=== PATIENT | male | born 1960 | race Caucasian/White ===

== ENCOUNTER 2016-11-07 09:53 | Day surgery (SDC) | payer BC, OTHER ==
[2016-10-24 16:13] VITALS: BMI 32.0
[~2016-11-07] VITALS: Ht 182.9 cm; Wt 108.2 kg
[~2016-11-07 09:53] MED LIST: AMLO-110 PO; ASPI81TA28 PO; ATOR10TA82 PO; CEFAZOLIN 2000 MG/60 ML D5W IV SCH; DOCU-94 PO; LOSA100T65 PO
--- NOTE | 2016-11-07 10:23 | History and Physical ---
History & Physical Date Nov 07, 2016. Chief Complaint LBP and L anterior thigh pain/numbness History of Present Illness The patient is a 55 year old male with complaints of above that began a few months ago after a fall. He has a hx of L3-S1 PSF following which he did well and returned to work. Prior to that he had undergone 2 other lumbar surgeries. His leg pain is severe and has failed to improve with rest and outpatient management. He is out of work due to pain. there is no pain on right or below his knee. MRI shows a large L L2-3 HNP, it did appear to extend into the neuroforamen. He has no incontinence. Past Medical/Surgical History HTN Hi cholesterol Additional History Hepatic Disease: No Endocrine Disorder: No Kidney Disease: No Hypertension: Yes Heart Disease: No Bleeding Tendencies: No Infectious Diseases: No Allergies Coded Allergies: No Known Allergies (Unverified , 10/24/16) Home Medications Scheduled Amlodipine (Norvasc), 5 MG PO QAM Aspirin (Aspirin Ec), 81 MG PO QAM Atorvastatin (Lipitor), 10 MG PO QAM Docusate Sodium (Colace), 2 CAP PO QPM Losartan Potassium (Cozaar), 100 MG PO QAM Physical Examination Skin: warm/dry, no rash Eyes: normal inspection ENT: normal ENT inspection Head: normocephalic, atraumatic Neck: supple, trachea midline Respiratory/Chest: lungs clear, no respiratory distress Cardiovascular: regular rate, rhythm Back: normal inspection, + pertinent finding (midline scar) Extremities: normal inspection, normal range of motion Neurologic/Psych: no motor/sensory deficits (excpet decreased sensation lt tch L anter thigh), alert, normal reflexes, oriented x 3 Diagnosis Left L2-3 HNP Plan of Treatment Left L2-3 microdiscectomy, if the facet is removed in its entirety intraoperatively to access herniation consent for a possible fusion was discussed.
[2016-11-07 10:27] VITALS: BP 152/73; PULSE 61; TEMP 36.7; O2SAT 98; Ht 182.9 cm; Wt 108.2 kg
[2016-11-07] MEDS ORDERED: THROMBIN 5000 UNITS KIT ONE (10:45)
[2016-11-07] MEDS ORDERED: HEPARIN SOD (PORCINE) 1000 UNIT/ML 10 ML VIAL ONE (10:45)
[2016-11-07] MEDS ORDERED: BACITRACIN 50000 UNIT VIAL ONE (10:46)
[2016-11-07] MEDS ORDERED: BUPIVACAINE/EPINEPHRINE 0.5% MPF 1:200,000 30 ML VIAL ONE (10:48)
[2016-11-07] MEDS ORDERED: LACTATED RINGER'S 1000ML 1,000 ML IV SCH (11:00)
[2016-11-07 11:06] LABS: PARTIAL THROMBOPLASTIN RATIO 1.1
[2016-11-07] MEDS ORDERED: FENTANYL CITRATE INJ 50 MCG/1 ML 2 ML VIAL ONE ×2 (11:06→11:36)
[2016-11-07] MEDS ORDERED: MIDAZOLAM HCL 1 MG/ML 2ML VIAL ONE (11:06)
[2016-11-07] MEDS ORDERED: HYDROmorphone INJ 2 MG/ML SYR/VIAL ONE ×2 (11:36→12:07)
[2016-11-07] MEDS ORDERED: ONDANSETRON INJ 2 MG/ML 2 ML VIAL ONE (11:44)
[2016-11-07] MEDS ORDERED: DEXAMETHASONE SOD INJ 4 MG/ML VIAL ONE (11:44)
[2016-11-07] MEDS ORDERED: LIDOCAINE HCL 2% 2 ML VIAL (20MG/ML) ONE (11:44)
[2016-11-07] MEDS ORDERED: PROPOFOL IV EMULSION 10 MG/ML 20 ML VIAL IV ONE (11:44)
[2016-11-07] MEDS ORDERED: FENTANYL CITRATE INJ 50 MCG/1 ML 2 ML VIAL IV PRN (11:45)
[2016-11-07] MEDS ORDERED: PROMETHAZINE HCL INJ 6.25 MG in SODIUM CHLORIDE 0.9% 50ML 50 ML IV PRN (11:45)
[2016-11-07] MEDS ORDERED: ONDANSETRON INJ 2 MG/ML 2 ML VIAL IV PRN ×2 (11:45→12:00)
[2016-11-07] MEDS ORDERED: ATROPINE SULFATE 0.1 MG/ML 5ML SYR IV PRN (11:45)
[2016-11-07] MEDS ORDERED: EpHEDrine SULFATE INJ 50 MG/ML AMP IV PRN (11:45)
[2016-11-07] MEDS ORDERED: FLOSEAL HEMOSTATIC MATRIX 5ML TOP ONE (11:54)
[2016-11-07] MEDS ORDERED: SODIUM CHLORIDE 0.9% 1000ML 1,000 ML IV SCH (11:59)
--- NOTE | 2016-11-07 11:59 | [facility] Post Operative Brief Note ---
Immediate Operative Summary Operative Date Nov 07, 2016. Pre-Operative Diagnosis Left L2-L3 Herniated nucleus pulposus Post-Operative Diagnosis same as preop Procedure(s) Performed Left L2-L3 Microdiscectomy Surgeon Dr. Tavon Lange Credit Risk Manager Surgeon(s) Manny Neal PA-C Estimated Blood Loss 80ml Findings dict Specimens none
[2016-11-07] MEDS ORDERED: MoRPHine SULFATE 2 MG/ML CARP IV PRN (12:00)
[2016-11-07] MEDS ORDERED: OXYC-57 PO (12:00)
[2016-11-07] MEDS ORDERED: OXYCODONE/ACETAMINOPHEN 5-325 TAB PO PRN ×2 (12:00)
--- NOTE | 2016-11-07 12:01 | Discharge Instructions ---
Discharge Instructions Date of Service Nov 07, 2016. Admission Reason for Admission: Lumbar Spinal Stenosis Discharge Discharge Diagnosis / Problem: same Discharge Goals Goal(s): Decrease discomfort Activity Recommendations Activity Limitations: per Instructions/Follow-up section . Instructions / Follow-Up Instructions / Follow-Up ACTIVITY RECOMMENDATIONS: SELF CARE INSTRUCTIONS AFTER A LAMINECTOMY 1. No prolonged sitting (less than 30 minutes for the first 3 weeks after surgery). 2. No bending, lifting more than 5 pounds, or twisting (roll like a log when turning in bed). 3. You may shower 3 days after surgery if no drainage from wound. Thoroughly dry wound. Do not soak in the tub. 4. Please walk as much as you can for exercise. Gradually increase the distance that you walk as your endurance increases. 5. You may drive in 7-10 days if you are comfortable and no longer requiring pain medications. SPECIAL CARE INSTRUCTIONS: VERY IMPORTANT TO READ AND REVIEW A. Your surgical incision has been closed with a cosmetic suture under the skin that will dissolve in about 6 weeks. In 14 days, you can use a pair of clean scissors and cut the suture that is left outside of the skin at the ends of your incision. B. Complications are uncommon, but please contact us if you have any signs or symptoms of: 1. wound infection (fever higher than 102.5 degrees F, redness, separation of wound, drainage, or increasing pain from the incision) 2. blood clots in legs (pain, swelling, redness and warmth in legs) 3. urinary tract infection (fever higher than 102.5 degrees, burning upon urination or increased frequency of urination) 4. nerve problems (inability to walk on your toes or heels, numbness, loss of bowel or bladder control) 5. any other symptoms that concern you. C. Please call the office at if you have any concerns or questions about your operation or recovery. MANAGING PAIN AFTER SPINAL SURGERY 1. Narcotic medication is intended for short-term use and will be provided for surgical pain. Surgical pain usually lasts for a period of 4-6 weeks. Narcotic medication includes Percocet, Vicodin, Darvocet, Tylenol #3 or Lortab. 2. Longer-term pain is more appropriately treated with non-narcotic medication such as Tylenol ES. 3. Muscle spasm is not appropriately treated with narcotics. Muscle relaxers such as Soma, Flexeril or Skelaxin can be used along with Tylenol ES. 4. Remember that we all live with some "aches and pains". This is not unusual or uncommon after an injury or as we get older. 5. We will provide appropriate medication within the normal guidelines of their prescribed use. We will also be very cautious and aware of potential abuse and extended duration of patients' medication needs. 6. Please allow 2-3 days to process refills. Prescriptions will not be mailed but must be picked up at the office. FOLLOW UP VISIT: Keep your scheduled follow-up appointment. Any questions, please call the office at . Current Hospital Diet Patient's current hospital diet: Discharge Diet Recommended Diet: Regular Diet Procedures Procedures Performed: Left L2-L3 Microdiscectomy Pending Studies Studies pending at discharge: no Medical Emergencies . Who to Call and When: Medical Emergencies: If at any time you feel your situation is an emergency, please call 911 immediately. . Non-Emergent Contact Non-Emergency issues call your: Surgeon . "Provider Documentation" section prepared by Tavon Lange. VTE Core Measure Inpt VTE Proph given/why not?: SCD's [place] Drug Monitoring Program Search Results: patient reviewed within database, no issues identified
[2016-11-07] MEDS ORDERED: GLYCOPYRROLATE INJ 0.2 MG/ML VIAL ONE (12:09)
[2016-11-07] MEDS ORDERED: NEOSTIGMINE METHYLSULFATE 1 MG/ML 10ML VIAL ONE (12:09)
[2016-11-07] MEDS ORDERED: KETOROLAC TROMETHAMINE 30 MG/ML VIAL ONE (12:09)
--- NOTE | 2016-11-07 12:31 | DIAGNOSTIC IMAGING REPORT ---
INTRAOPERATIVE RADIOGRAPH CLINICAL HISTORY: L2-L3 microdiscectomy. Fluoroscopy time: 4 seconds FINDINGS: A single spot fluoroscopic view of the lumbar spine is presented. A surgical probe projects posteriorly at the L2-L3 level. Fusion hardware from L3 -S1 is similar to previous. IMPRESSION: Intraoperative images from L2 -L3 microdiscectomy as above. Electronically signed by: Jaden Duarte M.D. 11/07/2016 12:29 PM Dictated Date/Time: 11/07/2016 12:28 PM
--- NOTE | 2016-11-07 12:55 | Anesthesiology Progress Note ---
Anesthesia Post Op Note Date & Time Nov 07, 2016 at 12:55 Vital Signs Pain Intensity: 2 Vital Signs Past 12 Hours Date Time Temp Pulse Resp B/P Pulse Ox O2 Delivery O2 Flow Rate FiO2 11/07/16 12:50 138/76 11/07/16 12:47 64 16 11/07/16 12:47 64 16 95 11/07/16 12:45 147/81 11/07/16 12:42 64 21 95 11/07/16 12:42 67 21 11/07/16 12:40 153/83 11/07/16 12:37 68 22 11/07/16 12:37 66 22 94 11/07/16 12:36 66 20 94 11/07/16 12:36 67 20 11/07/16 12:35 142/73 11/07/16 12:31 71 20 11/07/16 12:31 77 20 94 11/07/16 12:30 150/79 11/07/16 12:29 61 14 11/07/16 12:29 61 14 96 11/07/16 12:25 150/75 11/07/16 12:24 74 14 97 11/07/16 12:24 75 14 11/07/16 12:23 73 16 11/07/16 12:23 74 16 98 11/07/16 12:20 156/72 11/07/16 12:18 77 15 11/07/16 12:18 78 15 97 11/07/16 12:15 154/73 11/07/16 12:13 83 20 160/80 95 11/07/16 12:13 36.6 89 14 160/80 94 Mask 10 11/07/16 12:13 84 20 11/07/16 10:27 36.7 61 18 152/73 98 Room Air Notes Mental Status: alert / awake / arousable, participated in evaluation Pt Amnestic to Procedure: Yes Nausea / Vomiting: adequately controlled Pain: adequately controlled Airway Patency, RR, SpO2: stable & adequate BP & HR: stable & adequate Hydration State: stable & adequate Anesthetic Complications: no major complications apparent
[2016-11-07 13:00] VITALS: BP 139/74; PULSE 62; TEMP 36.3; O2SAT 94
--- NOTE | 2016-11-07 13:09 | OPERATIVE REPORT ---
DATE OF OPERATION: 11/07/2016 PREOPERATIVE DIAGNOSES: 1. Left L2-L3 herniated nucleus pulposus. 2. Previous L3-S1 instrumented fusion. POSTOPERATIVE DIAGNOSES: Same. PROCEDURES: Left L2-L3 microdiscectomy. SURGEON: Dr. Lange. OPERATIONS RESEARCH MANAGER: Manny Neal PA-C. Please note he participated in all portions of the procedure and was critical for performance of the procedure, participated in positioning, prepping, draping, retraction and wound closure. ANESTHESIA: General endotracheal anesthesia. COMPLICATIONS: None. ESTIMATED BLOOD LOSS: Minimal. DESCRIPTION OF PROCEDURE: After identification of patient and operative level, he was brought to the OR where he underwent induction of general anesthesia. He was then positioned prone on Antonio OR table with all bony prominences well padded. Care was taken to avoid pressure on the periorbital area. Lumbosacral area was sterilely prepped and draped in usual fashion. Antibiotics were administered. Time-out was performed. Level was confirmed and skin incision was localized with lateral fluoroscopy and a spinal needle. I infiltrated the skin with Marcaine with epinephrine, made skin incision over the spinous process of L2 and L3. I exposed the left L2-L3 interlaminar window, confirmed level with fluoroscopy and a marker at the operative interspace and then performed a laminotomy with the caudal edge of L2, took down the medial facet of L2-L3, facilitate exposure of the traversing L3 nerve root. L3 nerve root was under significant tension due to very large disk herniation in paracentral location with extruded fragments distal to disc space. Mobilized the nerve root gently and was able to retrieve 3 large fragments entering the nerve root. The nerve root was decompressed. I swept proximally and distally, confirmed there were no further free fragments, removed loose fragments deep to the annular tear that was already present and then confirmed adequate decompression, I irrigated with bacitracin solution and applied FloSeal and bone wax for hemostasis. I then closed in layered fashion. All sponge and needle counts were correct at the end of the case. I attest to the content of the Intraoperative Record and any orders documented therein. Any exceptio ns are noted below.
[2016-11-07 13:30] VITALS: BP 164/74; PULSE 73; O2SAT 95
[2016-11-07 14:00] VITALS: BP 163/73; PULSE 74; TEMP 36.3; O2SAT 96
[2016-11-08] MEDS ORDERED: CEFAZOLIN 2000 MG/60 ML D5W IV SCH (06:00)
[2016-11-08] MEDS ORDERED: LACTATED RINGER'S 1000ML 1,000 ML IV SCH (06:00)
[2017-06-07] MEDS ORDERED: VITAMIN PACK PO (13:20)
== END 2016-11-07 14:53 | disposition home or self-care (01) ==
LOC: C.ACU 09:53
PROVIDERS: ATTEND Orthopaedic Surgery Orthopaedic Surgery of the Spine
DX: M51.26 Other intervertebral disc displacement, lumbar region (principal); I10 Essential (primary) hypertension; E78.00 Pure hypercholesterolemia, unspecified; Z79.82 Long term (current) use of aspirin; Z79.899 Other long term (current) drug therapy

== ENCOUNTER 2017-07-09 07:26 | Inpatient (IN) | payer OTHER ==
--- NOTE | 2017-06-07 10:34 | History and Physical ---
History & Physical Date Jun 07, 2017. Chief Complaint right knee pain History of Present Illness Mr Tierney is a 56 year old male who complains of right knee pain for greater than 15 years. He presents with pain on the right side. He states that the symptoms have been chronic non-traumatic, denies any injuries. The symptoms occur intermittently. The problem is fluctuating. Currently the patient states that the symptoms are moderate-severe. The pain is described as aching, discomforting and throbbing. The symptoms occur intermittently. The symptoms are aggravated by ascending stairs, daily activities, descending stairs, driving , first steps while awake, kneeling, movement, repetitive activities, sleeping on the affected side and walking. Ambrose states that the symptoms are relieved by no specific activity. In addition to right knee pain the patient is also experiencing decreased mobility, difficulty bending, difficulty going to sleep, limping, nighttime awakening, pain and tenderness. Pertinent negatives include chills and fever. He has tried Tylenol, PO NSAIDs, and visco injection in the past. Past Medical/Surgical History HTN High Cholesterol history of lower back surgery x 4 Right small finger sx tonsillectomy wisdom teeth bilateral shoulder scopes Additional History Hepatic Disease: No Endocrine Disorder: No Kidney Disease: No Hypertension: Yes Heart Disease: No Bleeding Tendencies: No Allergies Coded Allergies: No Known Allergies (Unverified , 11/07/16) Home Medications Scheduled Amlodipine (Norvasc), 5 MG PO QAM Aspirin (Aspirin Ec), 81 MG PO QAM Atorvastatin (Lipitor), 10 MG PO QAM Docusate Sodium (Colace), 2 CAP PO QPM Losartan Potassium (Cozaar), 100 MG PO QAM Physical Examination Skin: warm/dry, no rash Eyes: normal inspection, EOMI, sclerae normal ENT: normal ENT inspection, pharynx normal Head: normocephalic, atraumatic Neck: supple, no adenopathy, trachea midline Respiratory/Chest: lungs clear, normal breath sounds, no respiratory distress Cardiovascular: regular rate, rhythm, no edema, no murmur Abdomen / GI: normal bowel sounds, non tender Addiitonal Comments: Physical Exam Exam Findings Details Knee ROM L * Active ROM - Flexion: 135 degrees, Extension: 0 degrees, Factors: normal, Description: active pain free range of motion. Passive ROM - Flexion: 135 degrees, Extension: 0 degrees, Factors: normal, Description: passive pain free range of motion. Knee ROM R * Active ROM - Flexion: 125 degrees, Extension: 3 degrees, Factors: pain, Description: active painful range of motion. Passive ROM - Flexion: 125 degrees, Extension: 3 degrees, Factors: pain, Description: passive painful range of motion. Strength LE Normal Strength Description - Normal lower extremity: Bilateral. Hip : Right: strength is normal. Knee: Right: strength is normal. Ankle/Foot: Right : strength is normal. Knee * Inspection - Gait: limp. Alignment - Right: varus, Left: neutral. Ecchymosis - Right: negative, Left: negative. Effusion - Right: mild, Left: normal. Swelling - Right: mild, Left: none. Flexibility - Right: normal, Left: normal. Maximum tenderness - Right: medial joint line, lateral joint line, patella, Left: normal. Patella exam - Crepitation - Right: mild, Left: normal. Patella position - Right: neutral, Left: neutral. Tilt - Right: equal, Left: normal. [facility]'s - lateral - Right: Positive. [facility]'s - medial - Right: Positive. Knee Comments No calf tenderness Knee Normal Inspection - Atrophy - Right: Absent, Left: Absent. Skin - Right: Normal, Left: Normal. Patella exam - Apprehension - Right: Negative, Left: Negative. Q-angle - Right: Normal, Left: Normal. [place]'s - Right: Negative, Left: Negative. Amie's - lateral - Left: Negative. Amie's - medial - Left: Negative. Posterior drawer - Right: Negative, Left: Negative. Anterior drawer - Right: Negative, Left: Negative. Valgus stress - Right: Negative, Left : Negative. Varus stress - Right: Negative, Left: Negative. Extensor lag - Right : Normal. Neurovascular LE Normal Neurovascular examination including reflexes, sensation , and pulses is within normal limits. Right Knee X-Ray Xrays reviewed of the right knee showing findings consistent with degenerative joint disease including joint space narrowing, subchondral sclerosis and peripheral osteophyte formation. no acute bony pathology Impression: degenerative joint disease of the right knee with no acute bony pathology noted. Diagnosis Right Knee DJD Further care discussed with patient and at this point in time has failed conservative measures and would like to proceed with a right total knee replacement. Plan on discharge will be home with outpatient physical therapy. DVT prophalaxis with TEDs, SCDs and will also place on aspirin 81 mg p.o. b.i.d. for a month postop. Patient will have follow up appointment in our office two weeks post op for staple/suture removal and re-evaluation. Patient otherwise has no other questions or concerns.
[2017-06-07 13:22] VITALS: BMI 32.0
--- NOTE | 2017-06-07 14:02 | PAT Medication Instructions ---
Service Date Jun 07, 2017. Current Home Medication List Amlodipine (Norvasc), 5 MG PO QAM Aspirin (Aspirin Ec), 81 MG PO QAM Atorvastatin (Lipitor), 10 MG PO QAM Losartan Potassium (Cozaar), 100 MG PO QAM [vitamin pack], 1 DOSE PO UD Medication Instructions For Your Scheduled Surgery - Hold the following medications the morning of surgery: [vitamin pack], 1 DOSE PO UD Losartan Potassium (Cozaar), 100 MG PO QAM - Take the following medications the morning of surgery with a sip of water: Atorvastatin (Lipitor), 10 MG PO QAM Amlodipine (Norvasc), 5 MG PO QAM Aspirin (Aspirin Ec), 81 MG PO QAM OTHERWISE NOTHING TO EAT OR DRINK AFTER MIDNIGHT If you have any questions please call us at [phone] or [phone] or [phone]
[2017-06-07 15:17] LABS: BASO % 0.4 %; BASO ABS # 0.03 K/uL (0-0.2); COMPLETE YES; EOS % 1.2 %; IG% 0.4 %; LYMPH % 26.2 %; LYMPH ABS # 1.97 K/uL (1.2-3.4); MEAN CELL VOLUME 90.7 fL (80-100); MEAN CORPUSCULAR HEMOGLOBIN 31.1 pg (25-34); MEAN CORPUSCULAR HGB CONC 34.3 g/dl (32-36); NEUT % 63.8 %; PLATELET COUNT 191 K/uL (130-400); RED BLOOD COUNT 4.85 M/uL (4.7-6.1); URINE APPEARANCE CLEAR (CLEAR); URINE BILIRUBIN NEG (NEG); URINE COLOR YELLOW; URINE NITRITE NEG (NEG); URINE SPECIFIC GRAVITY 1.032 (1.000-1.030); UROBILINOGEN NEG (NEG); WHITE BLOOD COUNT 7.53 K/uL (4.8-10.8)
[2017-06-07 15:22] LABS: MANUAL MICROSCOPIC REQUIRED? NO; REVIEW REQ? NO
[2017-06-07 15:26] LABS: PARTIAL THROMBOPLASTIN RATIO 1.1; PROTHROMBIN TIME (PATIENT) 11.1 SECONDS (9.0-12.0)
[2017-06-07 15:37] LABS: BUN/CREATININE RATIO 21.1 (10-20); CREATININE 1.14 mg/dl (0.60-1.40); POTASSIUM 3.6 mmol/L (3.5-5.1)
[2017-06-08 07:13] LABS: ESTIMATED AVERAGE GLUCOSE 111 mg/dl; HA1C FLAG Normal (Normal)
[2017-07-09] VITALS (10 sets, daily range): BP systolic 111–136; BP diastolic 66–78; PULSE 52–81; TEMP 36.5–37; O2SAT 96–99; Ht 182.9 cm; Wt 105.0 kg
[~2017-07-09] VITALS: Ht 182.9 cm; Wt 105.0 kg
[2017-07-09] MEDS: TRANEXAMIC ACID INJ 1,000 MG in SYRINGE 0 ML IV SCH ×2 (06:30→10:17)
--- NOTE | 2017-07-09 07:08 | History & Physical Bridge Note ---
H&P Re-Evaluation Bridge Note: I have examined the patient, reviewed the History & Physical and in the interval since the performance of the History & Physical I have noted the following changes of clinical significance: No changes noted
[~2017-07-09 07:26] MED LIST changes: +ACETAMINOPHEN 500 MG TAB PO SCH; +BUPIVACAINE 0.5 % 5 MG/1 ML PF 10ML VIAL ONE; -CEFAZOLIN 2000 MG/60 ML D5W IV SCH; +CEFAZOLIN 2000MG IV PUSH 10 ML IV SCH; +CeleBREX 200 MG CAP PO SCH; +DEXAMETHASONE 4 MG TAB PO SCH; -DOCU-94 PO; +FAMOTIDINE 20 MG TAB PO SCH; +GABAPENTIN 300 MG CAP PO SCH; +LACTATED RINGER'S 1000ML 1,000 ML IV SCH; +LACTATED RINGER'S 1000ML 500 ML IV ONE; +LACTATED RINGER'S 1000ML IV SCH; +METOCLOPRAMIDE HCL 10 MG TAB PO SCH; +ROPIVACAINE 0.5% 5 MG/ML 30 ML VIAL ONE; +ROPIVACAINE 5MG/ML 30 ML 150 MG, BUPIVACAINE 0.5% MPF INJ 30 ML, EpINEphrine HCL INJ 0.... INFIL SCH; +VITAMIN PACK PO
[2017-07-09] MEDS ORDERED: PHENYLEPHRINE 100MCG/ML 5ML SYR IV PRN (07:45)
[2017-07-09] MEDS ORDERED: ATROPINE SULFATE 0.1 MG/ML 5ML SYR IV PRN (07:45)
[2017-07-09] MEDS ORDERED: HYDROmorphone INJ 2 MG/ML SYR/VIAL IV PRN (07:45)
[2017-07-09] MEDS ORDERED: EpHEDrine SULFATE INJ 50 MG/ML AMP IV PRN (07:45)
[2017-07-09] MEDS ORDERED: ONDANSETRON INJ 2 MG/ML 2 ML VIAL IV PRN ×2 (07:45→12:30)
[2017-07-09] MEDS ORDERED: MIDAZOLAM HCL 1 MG/ML 2ML VIAL ONE (09:18)
--- NOTE | 2017-07-09 09:32 | History and Physical ---
History & Physical Date Jul 09, 2017. Chief Complaint Patient presents as a 56-year-old white male for right total knee arthroplasty after failing attempts at conservative management including physical therapy anti-inflammatories relative rest activity modification History of Present Illness The patient is a 56 year old male with complaints of ongoing right knee pain after failing times a conservative management including injections anti- inflammatories relative rest activity modification Additional History Hepatic Disease: No Endocrine Disorder: No Kidney Disease: No Hypertension: Yes Heart Disease: No Bleeding Tendencies: No Infectious Diseases: No Allergies Coded Allergies: No Known Allergies (Unverified , 07/09/17) Home Medications Scheduled Amlodipine (Norvasc), 5 MG PO QAM Aspirin (Aspirin Ec), 81 MG PO QAM Atorvastatin (Lipitor), 10 MG PO QAM Losartan Potassium (Cozaar), 100 MG PO QAM [vitamin pack], 1 DOSE PO UD Physical Examination Skin: warm/dry, no rash Eyes: normal inspection, EOMI, sclerae normal ENT: normal ENT inspection, pharynx normal Head: normocephalic, atraumatic Neck: supple, no adenopathy, trachea midline Respiratory/Chest: lungs clear, normal breath sounds, no respiratory distress Cardiovascular: regular rate, rhythm, no edema, no murmur Abdomen / GI: normal bowel sounds, non tender Back: normal inspection Extremities: + pertinent finding (severe end-stage DJD right knee) Diagnosis Patient presents for right total knee arthroplasty postoperative pain management DVT prophylaxis Plan of Treatment Patient presents for total knee arthroplasty posterior image DVT prophylaxis and box is necessary
[2017-07-09] MEDS ORDERED: BACITRACIN 50000 UNIT VIAL ONE (09:58)
[2017-07-09] MEDS ORDERED: POVIDONE-IODINE OP SOLN 30 ML BTL ONE (09:59)
[2017-07-09] MEDS ORDERED: ORTHO JOINT ANESTHETIC ONE (09:59)
--- NOTE | 2017-07-09 11:44 | [facility] Operative Report ---
Operative Report Operative Date Jul 09, 2017. Pre-Operative Diagnosis Severe end stage degenerative joint disease right knee Post-Operative Diagnosis Same as preoperative diagnosis Procedure(s) Performed Right total knee arthroplasty, Ramos [employer] Nephew, Cemented utilizing Ramos [employer] Nephew patient-matched journey / femur 7 tibia 11 poly-[address] Gonzalez [facility] Manager Surgeon(s) Tay Dias PA-C Estimated Blood Loss 5ML Findings Patient presents with severe end-stage DJD subchondral sclerosis cystic changes needed medial marginal osteophytes nonresponse to conservative therapy including injections anti-inflammatories relative rest activity modification Specimens A. Right knee bone and tissue Complication(s) None Disposition Recovery Room / PACU Indications Patient presents with a severe end-stage DJD varus alignment subchondral cystic changes sclerosus marginal osteophytes on the bone changes Nourse wants to conservative therapy Description of Procedure After proper prepping and draping of the Right lower extremity anterior midline incision was made over the region of the extensor extensor mechanism after meticulous hemostasis was obtained and maintained in subcutaneous tissues a medial parapatellar incision was made The patella was subluxed lateralward the medial lateral gutter were cleaned from any hypertrophic synovitis and scar tissue of the distal femoral block was placed and the distal femoral osteotomy cut was made subsequently the chamfers anterior and posterior osteotomy cuts were made utilizing the 4-in-1 block the tibia was subsequently subluxed anteriorward medial and ateral meniscal remnants were excised in their entirety remnants of the anterior and posterior cruciate ligaments were excised in their entirety excellent exposure of the proximal tibia was obtained the tibial osteotomy guide was placed on the proximal tibial osteotomy cut was made once again the knee was irrigated with copious amounts of sterile saline solution the patella was subsequently everted lateralward thickened scar tissue around the patella was removed the patella was subsequently cut utilizing a freehand technique and was drilled prepared for final preparation and placement of patella socially flexion-extension gaps were checked and the equal and symmetric trials were placed to the appropriate femoral and tibial trials with poly-spacer being placed for equal flexion and extension gaps and full range of motion including extension to 0 and flexion to 140 the trial components after having been taken to recovery range of motion was subsequently removed meticulous hemostasis was obtained and maintained subsequently a knee block injection of joint cocktail including ropivacaine 0.5% 150 mg. Bupivacaine 0.5 % epinephrine 1-200,030 mL's toradol 30 mg dexamethasone 4 mg ketamine 10 mg clonidine 100 micrograms normal saline solution 30 mg was infiltrated into the soft tissues of the posterior knee medial lateral gutters and periosteal synovium special attention was paid to protect neurovascular structures at all times subsequently trial components having been removed the knee was irrigated with sterile saline solution. debris was removed the proximal tibia was subsequently prepared and was made ready for the placement of the tibial component tibial component was also cemented and tamped into position the femoral component was subsequently placed and cemented in the position the patellar component was subsequently cemented in position because hemostasis once again obtained and maintained wound having been thoroughly irrigated with debridement and debridement lavage was performed as well as a medial parapatellar incision closed with #1 Vicryl in interrupted fashion subcutaneous was closed with #2 Vicryl skin was closed with skin clips. PA-C was necessary for prepping and drapping as well as wound closure of deep fascia Sub cutaneous tissue and skin and was necessary for the case. A sterile compressive dressing was placed patient was taken to recovery in stable condition of report dictated by Carlos I attest to the content of the Intraoperative Record and any orders documented therein. Any exceptions are noted below. I attest to the content of the Intraoperative Record and any orders documented therein. Any exceptions are noted below.
[2017-07-09] MEDS ORDERED: LIDOCAINE HCL 2% 2 ML VIAL (20MG/ML) ONE (11:53)
[2017-07-09] MEDS ORDERED: PROPOFOL IV EMULSION 10 MG/ML 20 ML VIAL IV ONE (11:53)
[2017-07-09] MEDS ORDERED: TAMSULOSIN HCL 0.4 MG CAP PO PRN (12:30)
[2017-07-09] MEDS ORDERED: OXYCODONE HCL IR 5 MG TAB (IMMEDIATE RELEASE) PO PRN (12:30)
[2017-07-09] MEDS ORDERED: ALUMINUM/MAGNESIUM/SIMETH (MAALOX MAX) 30 ML UDC PO PRN (12:30)
[2017-07-09] MEDS ORDERED: TRAMADOL HCL 50 MG TAB PO PRN (12:30)
[2017-07-09] MEDS ORDERED: MAGNESIUM HYDROXIDE SUSP 30 ML UDC PO PRN (12:30)
[2017-07-09] MEDS ORDERED: MoRPHine SULFATE 2 MG/ML CARP IV PRN (12:30)
--- NOTE | 2017-07-09 13:06 | DIAGNOSTIC IMAGING REPORT ---
R KNEE 1 OR 2 VIEWS ROUTINE CLINICAL HISTORY: Osteoarthritis. Postop study. COMPARISON: None. DISCUSSION: There are postsurgical changes of a total right knee arthroplasty and patellar resurfacing. The femoral and tibial components appear well seated. There is an overlying surgical drain. There is air within the soft tissues consistent with recent surgery. IMPRESSION: Postsurgical changes of a total right knee arthroplasty. Electronically signed by: Anuj Dunn M.D. 07/09/2017 1:04 PM Dictated Date/Time: 07/09/2017 1:04 PM
[2017-07-09] MEDS ORDERED: MoRPHine SULFATE 10 MG/ML CARP/VIAL IV PRN (14:15)
[2017-07-09] MEDS ORDERED: MoRPHine SULFATE 4 MG/ML 1 ML CARP\\VIAL IV PRN (14:15)
[2017-07-09] MEDS: D5W AND 1/2NSS + 20MEQ KCL 1,000 ML IV SCH ×2 (14:28→23:30)
--- NOTE | 2017-07-09 14:32 | Anesthesiology Progress Note ---
Anesthesia Post Op Note Date & Time Jul 09, 2017 at 14:32 Vital Signs Pain Intensity: 0.0 Vital Signs Past 12 Hours Date Time Temp Pulse Resp B/P (MAP) Pulse Ox O2 Delivery O2 Flow Rate FiO2 07/09/17 14:26 36.6 74 19 113/70 (84) 98 Nasal Cannula 2.0 07/09/17 13:54 36.6 58 20 111/66 (81) 98 Nasal Cannula 2.0 07/09/17 13:30 37.0 59 14 115/68 (84) 97 Nasal Cannula 2.0 07/09/17 13:30 97 Nasal Cannula 2.0 07/09/17 13:30 Room Air 07/09/17 13:15 56 15 108/58 93 Nasal Cannula 2 07/09/17 13:05 63 20 107/63 94 Nasal Cannula 2 07/09/17 12:55 37.2 64 15 118/65 96 Nasal Cannula 2 07/09/17 12:45 66 15 122/62 92 Nasal Cannula 2 07/09/17 12:35 66 17 120/65 95 Nasal Cannula 2 07/09/17 12:25 63 18 112/64 94 Nasal Cannula 2 07/09/17 12:17 36.5 67 16 117/71 96 Nasal Cannula 3 07/09/17 08:52 36.7 52 20 134/78 96 Room Air Notes Mental Status: alert / awake / arousable, participated in evaluation Pt Amnestic to Procedure: Yes Nausea / Vomiting: adequately controlled Pain: adequately controlled Airway Patency, RR, SpO2: stable & adequate BP & HR: stable & adequate Hydration State: stable & adequate Anesthetic Complications: no major complications apparent
[2017-07-09] MEDS: KETOROLAC TROMETHAMINE 30 MG/ML VIAL IV. SCH ×2 (16:30→22:04)
[2017-07-09] MEDS: CEFAZOLIN IV 2,000 MG in SYRINGE 0 ML IV SCH (18:19)
[2017-07-09] MEDS: FERROUS GLUCONATE 324 MG TAB PO SCH (19:15)
[2017-07-09] MEDS: ACETAMINOPHEN 500 MG TAB PO SCH (19:16)
[2017-07-09] MEDS: DOCUSATE SODIUM 100 MG CAP PO SCH (21:07)
[2017-07-09] MEDS: ASPIRIN 81 MG ECTAB PO SCH (21:07)
[2017-07-09] MEDS: SENNA 8.6 MG TAB PO SCH (21:07)
[2017-07-10] MEDS: CEFAZOLIN IV 2,000 MG in SYRINGE 0 ML IV SCH (02:19)
[2017-07-10] MEDS: ACETAMINOPHEN 500 MG TAB PO SCH ×3 (02:19→17:53)
[2017-07-10] MEDS: KETOROLAC TROMETHAMINE 30 MG/ML VIAL IV. SCH ×2 (03:59→10:01)
[2017-07-10 04:05] VITALS: BP 144/73; PULSE 63; TEMP 36.8; O2SAT 98
[2017-07-10 06:59] LABS: HEMATOCRIT 37.9 % (42-52); MEAN CELL VOLUME 89.4 fL (80-100); MEAN CORPUSCULAR HEMOGLOBIN 30.4 pg (25-34); MEAN PLATELET VOLUME 10.2 fL (7.4-10.4); PLATELET COUNT 203 K/uL (130-400); RED BLOOD COUNT 4.24 M/uL (4.7-6.1)
--- NOTE | 2017-07-10 07:09 | Orthopedic Progress Note ---
Orthopedic Progress Note Date of Service Jul 10, 2017. Subjective Post OP Day: 1 (right tka) Reports: feeling well, pain controlled w PO medications, Denies: complaints, chest pain, SOB, nausea / vomiting, light headedness, calf pain Objective calves soft nontender, N/V intact, capillary refill less than 2 sec., dressing C /D/I, A&O x3, toes mobile, hemovac drainage (150cc/ 8 hours) Date Time Temp Pulse Resp B/P (MAP) Pulse Ox O2 Delivery O2 Flow Rate FiO2 07/10/17 04:05 36.8 63 16 144/73 (96) 98 Room Air 07/09/17 23:35 Room Air 07/09/17 23:30 36.6 61 18 136/78 (97) 96 Room Air 07/09/17 19:40 99 Room Air 07/09/17 19:20 36.5 76 16 132/72 (92) 97 Nasal Cannula 2.0 07/09/17 16:17 81 18 131/66 (87) 07/09/17 15:45 98 Nasal Cannula 2.0 07/09/17 15:34 70 118/68 (85) 07/09/17 14:26 36.6 74 19 113/70 (84) 98 Nasal Cannula 2.0 07/09/17 13:54 36.6 58 20 111/66 (81) 98 Nasal Cannula 2.0 07/09/17 13:30 37.0 59 14 115/68 (84) 97 Nasal Cannula 2.0 07/09/17 13:30 97 Nasal Cannula 2.0 07/09/17 13:30 Room Air 07/09/17 13:15 56 15 108/58 93 Nasal Cannula 2 07/09/17 13:05 63 20 107/63 94 Nasal Cannula 2 07/09/17 12:55 37.2 64 15 118/65 96 Nasal Cannula 2 07/09/17 12:45 66 15 122/62 92 Nasal Cannula 2 07/09/17 12:35 66 17 120/65 95 Nasal Cannula 2 07/09/17 12:25 63 18 112/64 94 Nasal Cannula 2 07/09/17 12:17 36.5 67 16 117/71 96 Nasal Cannula 3 07/09/17 08:52 36.7 52 20 134/78 96 Room Air Laboratory Results 24 Hours: Test 07/10/17 06:09 Hematocrit 37.9 % Hemoglobin 12.9 g/dL Assessment & Plan Assessment: POD #1 s/p right tka -pt/ot -dvt proph with lulu/scd/asa -plan for d/c home with HHPT Discharge Planning Discharge Planning: home with home health DVT Prophylaxis: TEDs, SCDs, ASA
[2017-07-10 07:22] LABS: BUN/CREATININE RATIO 13.3 (10-20); CALCIUM 8.3 mg/dl (8.5-10.1); CREATININE 0.93 mg/dl (0.60-1.40); POTASSIUM 4.1 mmol/L (3.5-5.1)
--- NOTE | 2017-07-10 07:29 | Discharge Instructions ---
Discharge Instructions Date of Service Jul 10, 2017. Admission Reason for Admission: Right Knee Osteoarthritis Discharge Discharge Diagnosis / Problem: right TKA Discharge Goals Goal(s): Decrease discomfort, Improve function, Increase independence Activity Recommendations Activity Limitations: as noted below Weightbearing Status: Right weightbearing (as tolerated) . Instructions / Follow-Up Instructions / Follow-Up ACTIVITY RECOMMENDATIONS: SELF CARE INSTRUCTIONS AFTER TOTAL KNEE REPLACEMENT A. You may need to continue a physical therapy program after discharge from the hospital. There are several options available to you. Your doctor will assist you in selecting the best one for you. 1. An out-patient facility 2 to 3 times a week for therapy or home therapy. 2. Continue working on all exercises taught to you in the hospital. Your goals should be to increase bending of your knee to 90 degrees and beyond and to fully straighten your knee. B. You may progress at your own pace from walking with a walker or crutches to a cane; then to no assistive devices. C. Make walking a part of your daily routine. Be up as much as comfortable with rest periods throughout the day. Rest with leg elevation is very important. Use the ice wrap frequently for the first 3-4 weeks. D. There are no restrictions on activities. You may ride in a car, shop, participate in irrigation worker and all social activities. E. Wear the long elastic stockings (RUPESH hose) 20 hours a day for 2 weeks after surgery. They can be removed several times a day for laundering and for a bath. F. You may shower, no tub baths until cleared by your doctor. SPECIAL CARE INSTRUCTIONS: VERY IMPORTANT TO READ AND REVIEW A. There are a few signs you need to watch for after you are home. Call [facility] if you notice any of the followin. Increased severe knee pain. Some pain is expected especially when you exercise. 2. Increased swelling in your leg or knee; pain or swelling of the calf muscle in either lower leg. 3. Any fluid drainage from the incision. 4. Shortness of breath or chest pain. B. Please call [facility] at if you have any concerns or questions about your operation or recovery. The doctor or his nurse will return your call promptly. C. You must take antibiotics before dental work, bladder, bowel or other surgery. Your doctor will provide you with a permanent care to carry describing this precaution. IMPORTANT: * REMEMBER TO TAKE ASPIRIN, 81 MG, TWICE DAILY FOR 4 WEEKS UNLESS OTHERWISE DIRECTED. THIS IS YOUR BLOOD THINNER. * HIGH RISK PATIENTS MAY BE PRESCRIBED A STRONGER BLOOD THINNER. THIS WILL BE PROVIDED AT DISCHARGE. * CALL IF INCREASED PAIN, REDNESS, DRAINAGE OR FEVER GREATER THAT 101. * WEAR RUPESH HOSE 20 HOURS PER DAY FOR 2 WEEKS. * DERMABOND Prineo- This is a mesh tape dressing that is covered with glue. It should remain in place until the incision is properly healed, usually 10-14 days. This dressing is designed to naturally slough off. You may trim the excess mesh tape as it peels off. Incision may be briefly wet in a shower. Dry immediately by blotting with a clean, dry towel. Do not bath or swim until instructed by your doctor. Do not scratch, rub, or pick at the dressing. Do not apply any topical ointments or lotions until dressing is completely removed and/or instructed by your doctor. There may be a small piece of suture material at one end of your incision. Do not pull or trim this. If it is bothersome or catching on clothing, you may cover it with a band-aid. * YOU MAY HAVE A LARGE BAND-AID LIKE DRESSING (SILVERON). THIS WILL REMAIN ON YOUR INCISION FOR 7 DAYS, THEN CAN BE REMOVED. IF INCISION IS LEAKING THROUGH DRESSING, CALL THE OFFICE . FOLLOW UP VISIT: If appointment is not already scheduled: Please call [facility] to make a follow-up appointment for 2 weeks after your surgery at . Current Hospital Diet Patient's current hospital diet: Regular Diet Discharge Diet Recommended Diet: Regular Diet Procedures Procedures Performed: Right total knee arthroplasty, Ramos & Nephew, Cemented utilizing Ramos & Nephew patient-matched journey 2/6 femur 7 tibia 11 poly-35 oval patella Pending Studies Studies pending at discharge: no Laboratory Results Hemoglobin A1c Test 06/07/17 14:25 Range/Units Estimated Average Glucose 111 mg/dl Hemoglobin A1c 5.5 4.5-5.6 % Medical Emergencies . Who to Call and When: Medical Emergencies: If at any time you feel your situation is an emergency, please call 911 immediately. . Non-Emergent Contact Non-Emergency issues call your: Primary Care Provider, Surgeon . "Provider Documentation" section prepared by Arturo Chen. . VTE Core Measure Inpt VTE Proph given/why not?: Other Anticoagulation (ASA 81mg po bid x 1 month ), T.E.D. Stockings, SCD's [place] Drug Monitoring Program Search Results: patient reviewed within database, no issues identified
[2017-07-10 07:38] VITALS: BP_SYST 138; PULSE 61; TEMP 36.7; O2SAT 99
[2017-07-10 07:47] VITALS: O2SAT 99
[2017-07-10] MEDS: ASPIRIN 81 MG ECTAB PO SCH ×2 (08:50→20:46)
[2017-07-10] MEDS: MULTIVITAMIN TAB PO SCH (08:50)
[2017-07-10] MEDS: ATORVASTATIN 10 MG TAB PO SCH (08:51)
[2017-07-10] MEDS: D5W AND 1/2NSS + 20MEQ KCL 1,000 ML IV SCH (08:52)
[2017-07-10] MEDS: AMLODIPINE BESYLATE 5 MG TAB PO SCH (08:52)
[2017-07-10] MEDS: FERROUS GLUCONATE 324 MG TAB PO SCH ×3 (08:53→17:53)
[2017-07-10] MEDS: LOSARTAN POTASSIUM 50 MG TAB PO SCH (08:53)
[2017-07-10] MEDS: DOCUSATE SODIUM 100 MG CAP PO SCH ×2 (08:53→20:46)
[2017-07-10 12:00] VITALS: BP 136/72; PULSE 64; TEMP 36.7; O2SAT 100
--- NOTE | 2017-07-10 13:29 | Anesthesiology Progress Note ---
Anesthesia Post Op Note Date & Time Jul 10, 2017 at 13:29 Vital Signs Vital Signs Past 12 Hours Date Time Temp Pulse Resp B/P (MAP) Pulse Ox O2 Delivery O2 Flow Rate FiO2 07/10/17 12:00 36.7 64 16 136/72 (93) 100 Room Air 07/10/17 07:47 99 Room Air 07/10/17 07:38 36.7 61 18 138/ (46) 99 Room Air 07/10/17 07:30 Room Air 07/10/17 04:05 36.8 63 16 144/73 (96) 98 Room Air Notes Mental Status: alert / awake / arousable, participated in evaluation Pt Amnestic to Procedure: Yes Nausea / Vomiting: adequately controlled Pain: adequately controlled Airway Patency, RR, SpO2: stable & adequate BP & HR: stable & adequate Hydration State: stable & adequate Neuraxial Anesthesia: sensory block resolved Anesthetic Complications: no major complications apparent
[2017-07-10 15:01] VITALS: BP 149/77; PULSE 61; TEMP 36.6; O2SAT 98
[2017-07-10] MEDS: CeleBREX 200 MG CAP PO SCH (20:46)
[2017-07-10] MEDS: SENNA 8.6 MG TAB PO SCH (20:46)
[2017-07-10 23:03] VITALS: BP 136/81; PULSE 63; TEMP 36.7; O2SAT 98
[2017-07-11] MEDS: ACETAMINOPHEN 500 MG TAB PO SCH ×2 (02:10→09:35)
[2017-07-11 06:28] VITALS: BP 148/88; PULSE 60; TEMP 36.7; O2SAT 98
[2017-07-11] MEDS: ASPIRIN 81 MG ECTAB PO SCH (07:14)
[2017-07-11] MEDS: CeleBREX 200 MG CAP PO SCH (07:14)
[2017-07-11] MEDS: FERROUS GLUCONATE 324 MG TAB PO SCH (07:14)
[2017-07-11] MEDS: ATORVASTATIN 10 MG TAB PO SCH (07:14)
[2017-07-11] MEDS: AMLODIPINE BESYLATE 5 MG TAB PO SCH (07:15)
[2017-07-11] MEDS: LOSARTAN POTASSIUM 50 MG TAB PO SCH (07:15)
[2017-07-11] MEDS: MULTIVITAMIN TAB PO SCH (07:15)
[2017-07-11] MEDS: DOCUSATE SODIUM 100 MG CAP PO SCH (07:16)
--- NOTE | 2017-07-11 08:14 | Orthopedic Progress Note ---
Orthopedic Progress Note Date of Service Jul 11, 2017. Subjective Post OP Day: 2 Reports: feeling well, Denies: chest pain, SOB, nausea / vomiting, light headedness, calf pain Objective calves soft nontender, N/V intact, capillary refill less than 2 sec., incision C /D/I, A&O x3, toes mobile Date Time Temp Pulse Resp B/P (MAP) Pulse Ox O2 Delivery O2 Flow Rate FiO2 07/11/17 07:15 Room Air 07/11/17 06:28 36.7 60 16 148/88 (108) 98 Room Air 07/11/17 00:00 Room Air 07/10/17 23:03 36.7 63 16 136/81 (99) 98 Room Air 07/10/17 15:40 Room Air 07/10/17 15:01 36.6 61 19 149/77 (101) 98 Room Air 07/10/17 12:00 36.7 64 16 136/72 (93) 100 Room Air Assessment & Plan Assessment: POD #2 s/p right tka -pt/ot -dvt proph with lulu/scd/asa -plan for d/c home with HHPT Discharge Planning Discharge Planning: home with home health DVT Prophylaxis: TEDs, SCDs, ASA
[2017-07-11] MEDS ORDERED: SENN-61 PO (08:18)
[2017-07-11] MEDS ORDERED: RXC5 PO (08:18)
[2017-07-11] MEDS ORDERED: ULT50X PO (08:18)
[2017-07-11] MEDS ORDERED: ONDA8TAB6 PO (08:18)
[2017-07-11] MEDS ORDERED: ASPI81TA28 PO (08:18)
[2017-07-11] MEDS ORDERED: ACET-24 PO (08:18)
[2017-07-11] MEDS ORDERED: CLB200 PO (08:18)
[2017-07-11 09:06] VITALS: BP 148/88; PULSE 60; TEMP 36.7; O2SAT 98
--- NOTE | 2017-07-11 09:15 | DISCHARGE SUMMARY ---
DISCHARGE DIAGNOSIS: Degenerative joint disease, right knee. SECONDARY DIAGNOSES: Hypertension, hypercholesterolemia. CONSULTS: None. COMPLICATIONS: None. PROCEDURES: Right total knee arthroplasty performed by Dr. Gonzalez on 07/09/2017. BRIEF HISTORY: As dictated in history and physical. HOSPITAL SUMMARY: The patient was admitted on the above-noted date and had the above-noted surgery performed which he tolerated well. On his first postoperative day, he was feeling well. Pain was controlled. He had no complaints. Dressings intact. Toes were mobile. Calves were soft and nontender and neurovascularly intact. Vital signs were stable. He was afebrile. Hemoglobin was 12.9 and he was started on physical therapy protocol and continued on DVT prophylaxis and pain management. By the second postoperative day, he was feeling well and had no complaints. Calves were soft and nontender. Incision remained benign. Toes were mobile. He was progressing well with his physical therapy and remaining stable and it was felt he could be discharged to home with home health physical therapy. For further review, please see chart. LAB AND X-RAY DATA: As per chart. DISCHARGE INSTRUCTIONS: The patient was discharged to home in satisfactory condition on 07/11/2017. DIAGNOSIS: Degenerative joint disease, right knee. DIET: Regular. ACTIVITY: Weightbearing as tolerated in right lower extremity. Follow TK instruction sheets and special care instructions as noted. Follow up with Dr. Gonzalez in 2 weeks. The patient to call for appointment if one has not been made for you. DISCHARGE MEDICATIONS: Acetaminophen 1000 mg p.o. q. 8 hours, Celebrex 200 mg p.o. b.i.d., Zofran 8 mg p.o. q. 8 hours p.r.n. nausea, oxycodone 5-10 mg p.o. q. 4 hours p.r.n., senna 17.2 mg p.o. at bedtime, tramadol 50-100 mg p.o. q. 4 hours p.r.n. Resume amlodipine 5 mg p.o. q.a.m., atorvastatin 10 mg p.o. q.a.m., losartan potassium 100 mg p.o. q.a.m. and vitamin pack 1 dose p.o. as directed, aspirin 81 mg p.o. b.i.d. for 30 days and then resume once daily dosing thereafter.
== END 2017-07-11 11:01 | disposition home health service (06) | DRG 470 ==
LOC: C.ACU 07:26 → ENRESERV 13:04 → C.3E 13:42
PROVIDERS: ADMIT Orthopaedic Surgery; ATTEND Orthopaedic Surgery
PROC: 0SRC0J9 Replacement of Right Knee Joint with Synthetic Substitute, Cemented, Open Approach (ICD-10-PCS; principal; 2017-07-09 11:00)
DX: M17.11 Unilateral primary osteoarthritis, right knee (principal); I10 Essential (primary) hypertension; E78.00 Pure hypercholesterolemia, unspecified; Z79.82 Long term (current) use of aspirin

== ENCOUNTER 2022-07-10 10:52 | Observation (INO) ==
--- NOTE | 2022-05-18 08:55 | PAT Medication Instructions ---
Medication Instructions Date of Service May 18, 2022 Home Medications amlodipine 5 mg tablet 5 mg PO QAM aspirin 81 mg tablet,delayed release 81 mg PO QAM atorvastatin 10 mg tablet 10 mg PO QAM cholecalciferol (vitamin D3) 25 mcg (1,000 unit) tablet (Vitamin D3) 25 mcg PO QAM losartan 100 mg tablet 100 mg PO QAM [id number]-[id number]-rkn C 250 mg-herbal no.124 11.66 mg chewable tablet (Airborne Gummy) 2 tab PO QAM STOP taking 2 weeks before surgery (or as soon as possible if surgery is within 2 weeks) adyyzoeh-gmvtechy-gnr C 250 mg-herbal no.124 11.66 mg chewable tablet (Airborne Gummy) 2 tab PO QAM DO NOT take the morning of surgery cholecalciferol (vitamin D3) 25 mcg (1,000 unit) tablet (Vitamin D3) 25 mcg PO QAM losartan 100 mg tablet 100 mg PO QAM Take morning of surgery With a small sip of water, OTHERWISE NOTHING TO EAT OR DRINK AFTER MIDNIGHT: amlodipine 5 mg tablet 5 mg PO QAM aspirin 81 mg tablet,delayed release 81 mg PO QAM (continue as normal unless told otherwise by surgeon) atorvastatin 10 mg tablet 10 mg PO QAM Other Notes If you have any questions please call us at [phone] or [phone] or [phone] or [phone]
--- NOTE | 2022-05-22 09:46 | Anesthesiology Consultation ---
Date of Service May 22, 2022 Assessment & Plan (1) Encounter for pre-operative examination: - Outpatient joint assessment: Patient is currently scheduled for inpatient pathway. If re-evaluated pending system levels during current pandemic/surgeon requests outpatient pathway, patient is acceptable candidate for outpatient joint program from anesthesia standpoint pending surgeon's office assessment of pt motivation/support/completion of same day joint program preop requirements. Chart Review Chart Review: Acceptable Risk for Surgery and Patient seen in Pre Admission Testing Teaching & Discussion Pre-Anesthesia Teaching/Discussion Notes: Instructed NPO after midnight before surgery, except medications with 15 cc of water. Medication instructions provided according to the PAT guidelines. History Surgery Operation Date: 07/10/22 07:15 Proposed Procedures p Left Total Knee Arthroplasty - Tenzin Gonzalez DO Height/Weight Height: 5 ft 11 in Weight: 111.13 kg Allergies Allergy/AdvReac Type Severity Reaction Status Date / Time No Known Allergies Allergy Verified 05/17/22 13:44 Medications Home Medications Medication Instructions Recorded Confirmed Last Taken amlodipine 5 mg tablet 5 mg PO QAM 05/17/22 05/17/22 Unknown aspirin 81 mg tablet,delayed 81 mg PO QAM 05/17/22 05/17/22 Unknown release atorvastatin 10 mg tablet 10 mg PO QAM 05/17/22 05/17/22 Unknown cholecalciferol (vitamin D3) 25 25 mcg PO QAM 05/17/22 05/17/22 Unknown mcg (1,000 unit) tablet (Vitamin D3) losartan 100 mg tablet 100 mg PO QAM 05/17/22 05/17/22 Unknown lyyswwuj-ucjevqvm-hmv C 250 2 tab PO QAM 05/17/22 05/17/22 Unknown mg-herbal no.124 11.66 mg chewable tablet (Airborne Gummy) Past Medical History Medical History (Updated 05/22/22 @ 10:16 by Brii Rogel PA-C) Fusion of spine lumbar Hyperlipidemia Hypertension controlled, stable per pt Patient denies h/o stroke, seizures, heart attack, heart failure, DM, blood clots or blood transfusions. Exercise / Class Metabolic Activity II 4-5 Yardwork/Stairs/Walk up hill (denies CP or SOB with 1 FOS) Past Family History Family History Father Colon cancer Past Surgical History Surgical History (Updated 05/22/22 @ 10:23 by Brii Rogel PA-C) History of carpal tunnel release bilat History of colonoscopy History of lumbar spinal fusion x 4 History of repair of rotator cuff bilat History of tonsillectomy History of tooth extraction History of total knee replacement right 07/09/17: L3-L4 + PNB. [place] teeth extracted Past Anesthesia History No Hx of Anesthesia Complications and No Family Hx of Anesthesia Complications History of PONV No Hx of PONV and No Hx of Motion Sickness Social History Smoking Status: Never smoker tobacco type: smokeless tobacco Do You Dip or Chew Tobacco: Yes (advised npo status) Hx Alcohol Use: Yes Alcohol type: beer alcohol intake frequency: a few times a week Hx Substance Use: No substance use type: does not use Review of Systems Snoring, denies witnessed apneas. Patient denies chest pain, shortness of breath, dyspnea on exertion, fever, chills, cough, wheezing, or palpitations. Physical Exam Vital Signs Vitals BP 157/82 P 60 SP02 99% on RA RESP 98.8 Physical Full cervical extension range of motion without pain TMD 3.5 finger breadths Mallampati Score 3 Dentition: intact, denies chipped or loose teeth, caps/crowns, implants or bridges Lungs: normal respiratory effort. Clear throughout to auscultation, no adventitious breath sounds Cardiac: regular rate and rhythm, no murmurs noted Carotid arteries: negative bruit bilat Lab Results Anesthesia Preop Results Results Anesthesia Widget: WBC 5.44 K/ul (4.8-10.8) 05/22/22 Hgb 14.7 g/dl (14.0-18.0) 05/22/22 Hct 42.7 % (40.1-51.0) 05/22/22 Plt 197 K/uL (130-400) 05/22/22 Na 139 mmol/L (136-145) 05/22/22 K 3.9 mmol/L (3.5-5.1) 05/22/22 Cl 107 mmol/L (98-107) 05/22/22 CO2 26 mmol/L (21-32) 05/22/22 BUN 17 mg/dl (6-23) 05/22/22 Creat 0.94 mg/dl (0.6-1.4) 05/22/22 Glucose Level 122 mg/dl (70-99(Fasting)) H 05/22/22 PT 10.8 Seconds (9.0-12.0) 05/22/22 PTT 27.3 Seconds (21.0-31.0) 05/22/22 INR 1.0 (0.9-1.1) 05/22/22 HA1c 5.9 % (4.5-5.6) H 05/22/22 Urine Color Yellow 05/22/22 Urine Appearance Clear (Clear) 05/22/22 Urine pH 7.5 (4.5-7.5) 05/22/22 Urine Specific [place] 1.017 (1.000-1.030) 05/22/22 Urine Protein Negative (Negative) 05/22/22 Urine Glucose (UA) Negative (Negative) 05/22/22 Urine Ketones Negative (Negative) 05/22/22 Urine Blood Negative (Negative) 05/22/22 Urine Nitrite Negative (Negative) 05/22/22 Urine Bilirubin Negative (Negative) 05/22/22 Urine Urobilinogen Negative (Negative) 05/22/22 Urine Leukocyte Esterase Negative (Negative) 05/22/22 Blood Type A Positive 05/22/22 Antibody Screen NEGATIVE 05/22/22 Testing Electrocardiogram Date: 05/22/22 Sinus bradycardia with sinus arrhythmia, rate 47 bpm Premature supraventricular complexes Chest X-Ray Date: 05/22/22 Cardiomediastinal and hilar silhouettes are within normal limits. No pneumothorax, pleural effusion, airspace consolidation or overt pulmonary edema. Humeral head surgical anchors are noted. Bones of the chest appear grossly intact. IMPRESSION: No acute process. COVID-19 Risk Screen Screening Information COVID-19 Screen Date: 05/22/22 Exposure 21 Days Family/Household +COVID Last 21 Days: No Exposure 10 Days Any COVID Exposure Last 10 Days: No Symptoms Last 10 Days Experienced COVID Sx Last 10 Days: No + COVID 0-90 Days COVID + in Last 0-90 Days: No
--- NOTE | 2022-06-14 09:38 | History & Physical Report ---
Date of Service June 14, 2022 date of surgery: 07/10/22 Procedure: Left Total Knee Arthroplasty Surgeon: Tenzin Gonzalez Assessment & Plan (1) Arthritis of knee, left: Plan: Risks and benefits of procedure discussed in detail today, patient would like to proceed with a left total knee replacement at [facility] as scheduled. will obtain medical clearance prior to surgery as well as obtain PATs at [facility]. Will place on ASA 81mg po bid x 1 month post op, f/u 2 weeks post op for routine post-operative care and x-ray, sooner if having any problems. will make arrangements for HHPT at the time of discharge, his daughter is also a PT and may be able to help after his surgery. At this point in time, has failed conservative measures and would like to proceed with surgical intervention. The risks and benefits have been discussed including, but not limited to, risk of infection, nerve injury, stiffness, loss of motion, failure to improve, etc. Reasonable outcomes and options of treatment were discussed. An explanation of appropriate alternatives to the procedure that may be advantageous were discussed and their risks and benefits, as well as the risks and benefits of not proceeding with treatment. I offered to answer any additional inquiries concerning the treatment involved. All the patient's questions were answered. The patient is agreeable, understanding of the treatment plan and alternatives, and wishes to proceed with the treatment plan. History of Present Illness Chief Complaint: left knee pain Primary Care Provider: Frank Wilkinson DO Ambrose is a 61 year old male who complains of left knee pain, presents for pre-op evaluation prior to a left total knee replacement by Dr Gonzalez at [facility]. He complains of pain, decreased range of motion, instability and stiffness in his left knee. Currently the patient states that the symptoms are moderate-severe and is described as aching, sharp and throbbing. His symptoms are aggravated by ascending stairs, daily activities, first steps while awake walking. Prior NSAIDs include IBU and Aleve. He has been treated with previous cortisone and visco injections in the past without much relief. Allergies Allergy/AdvReac Type Severity Reaction Status Date / Time No Known Allergies Allergy Verified 05/17/22 13:44 Home Medications Medication Instructions Recorded Confirmed Type amlodipine 5 mg tablet 5 mg PO QAM 05/17/22 05/17/22 History aspirin 81 mg tablet,delayed 81 mg PO QAM 05/17/22 05/17/22 History release atorvastatin 10 mg tablet 10 mg PO QAM 05/17/22 05/17/22 History cholecalciferol (vitamin D3) 25 25 mcg PO QAM 05/17/22 05/17/22 History mcg (1,000 unit) tablet (Vitamin D3) losartan 100 mg tablet 100 mg PO QAM 05/17/22 05/17/22 History xkklgjun-mfpqvukh-crn C 250 2 tab PO QAM 05/17/22 05/17/22 History mg-herbal no.124 11.66 mg chewable tablet (Airborne Gummy) Past Med/Surg History Medical History Fusion of spine lumbar Hyperlipidemia Hypertension controlled, stable per pt Surgical History History of carpal tunnel release bilat History of colonoscopy History of lumbar spinal fusion x 4 History of repair of rotator cuff bilat History of tonsillectomy History of tooth extraction History of total knee replacement right 07/09/17: L3-L4 + PNB. [place] teeth extracted Family History Father Colon cancer Social History Smoking Status: Never smoker Second Hand Exposure: No; Hx Alcohol Use: Yes Alcohol type: beer Hx Substance Use: No Preferred Language: Iranian Communication Ability: Effective Rn Hematology Required: No Beliefs That Will Affect Care: None Current Living Situation: Spouse Feels Safe at Home: Yes Assistive Devices: Glasses Review of Systems Review of Systems: All systems reviewed & are unremarkable except as noted in HPI & below Constitutional: no fever, no chills and no sweats Respiratory: no cough and no dyspnea Cardiovascular: no chest pain, no dyspnea and no orthopnea Gastrointestinal: no abdominal pain, no nausea and no vomiting Musculoskeletal: as per Subjective / HPI Physical Exam Physical Exam: HT: 5ft 11in WT: 113.4kg Constitutional: WD/WN, vitals as above no acute distress Respiratory: normal respiratory effort, lungs clear to auscultation no respiratory distress, no labored breathing and does not use accessory muscles Cardiovascular: RRR, no murmur, no edema Gastrointestinal (Abdomen): normal bowel sounds, soft, nontender, no hepatosplenomegaly Musculoskeletal: Knee: + knee abnormal to inspection (LEFT KNEE), + effusion (+1 effusion), + limited ROM of knee (ROM 0/3/110), + knee ROM with crepitation, + joint line tenderness (medial joint line) and + Josie's sign positive; no deformity, no skin erythema, no ecchymosis, no valgus laxity, no varus laxity, anterior drawer test negative, America's sign negative and pivot shift test negative Results & Data Results & Data ([facility]) Diagnostic Findings Left Knee X-ray: left knee series confirm degenerative changes to the left knee, greatest medial compartments and patellofemoral joint, showing joint space narrowing, osteophyte formation and subchondral sclerosis. no acute bony pathology noted.
[~2022-07-10 10:52] MED LIST changes: -AMLO-110 PO; -ASPI81TA28 PO; -ATOR10TA82 PO; -CEFAZOLIN 2000MG IV PUSH 10 ML IV SCH; -DEXAMETHASONE 4 MG TAB PO SCH; -GABAPENTIN 300 MG CAP PO SCH; +GABAPENTIN 600 MG DOSE PO SCH; -LACTATED RINGER'S 1000ML 1,000 ML IV SCH; -LACTATED RINGER'S 1000ML 500 ML IV ONE; -LACTATED RINGER'S 1000ML IV SCH; +LIDOCAINE 2% 2 ML VIAL/AMP(20MG/ML) INFIL ONE; -LOSA100T65 PO; +LR 500ML BOLUS, THEN 15ML/HR IV SCH; -METOCLOPRAMIDE HCL 10 MG TAB PO SCH; +METOCLOPRAMIDE HCL 10 MG TABLET PO SCH; +MIDAZOLAM HCL 1 MG/ML 2ML VIAL ONE; +PROPOFOL IV EMULSION 10 MG/ML 20 ML VIAL IV ONE; +ROPIVACAINE 0.5% HCL/PF 150 MG, BUPIVACAINE 0.75% MPF 20 ML, EPINEPHrine 30MG/30ML (OR ... INSTIL SCH; -ROPIVACAINE 5MG/ML 30 ML 150 MG, BUPIVACAINE 0.5% MPF INJ 30 ML, EpINEphrine HCL INJ 0.... INFIL SCH; +TRANEXAMIC ACID 1,000 MG **IV Intra-op IV SCH; +TRANEXAMIC ACID 1,000 MG **IV Pre-op IV SCH; -VITAMIN PACK PO; +ceFAZolin 2000MG 2,000 MG/15 ML SYR IV SCH; +dexAMETHasone 4 MG TAB PO SCH; +fentaNYL citrate 100 MCG/2 ML VIAL ONE
[2022-07-10] MEDS ORDERED: ePHEDrine sulfate 50 MG/ML AMP IV PRN (11:16)
[2022-07-10] MEDS ORDERED: ONDANSETRON INJ 2 MG/ML 2 ML VIAL IV PRN ×2 (11:16→16:47)
[2022-07-10] MEDS ORDERED: ATROPINE SULFATE 0.1 MG/ML 10ML SYR IV PRN (11:16)
[2022-07-10] MEDS ORDERED: fentaNYL citrate 100 MCG/2 ML VIAL IV PRN (11:16)
[2022-07-10] MEDS ORDERED: PROPOFOL IV EMULSION 10 MG/ML 20 ML VIAL IV ONE ×2 (12:28)
[2022-07-10] MEDS ORDERED: ORTHO JOINT ANESTHETIC ONE (12:47)
--- NOTE | 2022-07-10 13:47 | History & Physical Bridge Note ---
Date of Service July 10, 2022 History & Physical Bridge Note I have examined the patient, reviewed the History & Physical and in the interval since the performance of the History & Physical I have noted the following changes of clinical significance: no changes noted
[2022-07-10] MEDS ORDERED: ONDANSETRON INJ 2 MG/ML 2 ML VIAL ONE (14:13)
--- NOTE | 2022-07-10 15:02 | Operative Report ---
Post Operative Report Pre & Post Diagnosis Operation Date: 07/10/22 12:25 Pre-Op Diagnosis: Left Knee Osteoarthritis Post-Op Diagnosis: Left Knee Osteoarthritis I identified the patient and participated in the time-out.: Yes Procedure Operation Date: 07/10/22 12:25 Actual Procedures p Left Total Knee Arthroplasty(Left) utilizing [employer] 2 patient matched total knee arthroplasty size femur 6 tibia 6 patella 35 oval poly-11 mm- Tenzin Gonzalez DO Surgeon Tenzin Gonzalez DO [place] Paver Operator SANDEE Seymour Estimated Blood Loss 5 Findings Consistent with Post-Op Diagnosis Patient presents with severe tricompartmental degenerative joint disease left knee no response to conservative management varus alignment subchondral sclerosis marginal osteophytes large effusion Specimens Bone and cartilage Drains Medium bore Hemovac Anesthesia Type MAC Spinal Regional Complications none Disposition Accompanied Patient To Recovery: No Disposition: Recovery Room Indications Patient presents today with severe end-stage DJD 10 degree flexion contracture varus alignment subchondral sclerosis marginal osteophytes patient failed attempted conservative manage occluding physical therapy anti-inflammatories relative rest activity modification corticosteroid injection viscosupplementation the above intraoperative findings were noted Description of Procedure After proper prepping and draping of the left lower extremity anterior midline incision was made over the region of the extensor extensor mechanism after meticulous hemostasis was obtained and maintained in subcutaneous tissues a medial parapatellar incision was made The patella was subluxed lateralward the medial lateral gutter were cleaned from any hypertrophic synovitis and scar tissue of the distal femoral block was placed and the distal femoral osteotomy cut was made subsequently the chamfers anterior and posterior osteotomy cuts were made utilizing the 4-in-1 block the tibia was subsequently subluxed anteriorward medial and ateral meniscal remnants were excised in their entirety remnants of the anterior and posterior cruciate ligaments were excised in their entirety excellent exposure of the proximal tibia was obtained the tibial osteotomy guide was placed on the proximal tibial osteotomy cut was made once ag ain the knee was irrigated with copious amounts of sterile saline solution the patella was subsequently everted lateralward thickened scar tissue around the patella was removed the patella was subsequently cut utilizing a freehand technique and was drilled prepared for final preparation and placement of patella socially flexion-extension gaps were checked and the equal and symmetric trials were placed to the appropriate femoral and tibial trials with poly-spacer being placed for equal flexion and extension gaps and full range of motion including extension to 0 and flexion to 140 the trial components after having been taken to recovery range of motion was subsequently removed meticulous hemostasis was obtained and maintained subsequently a knee block injection of joint cocktail including ropivacaine 0.5% 150 mg. Bupivacaine 0.5% epinephrine 1-200,030 mL's toradol 30 mg dexamethasone 4 mg ketamine 10 mg clonidine 100 micrograms normal saline solution 30 mg was infiltrated into the soft tissues of the posterior knee medial lateral gutters and periosteal synovium special attention was paid to protect neurovascular structures at all times subsequently trial components having been removed the knee was irrigated with sterile saline solution. debris was removed the proximal tibia was subsequently prepared and was made ready for the placement of the tibial component tibial component was also cemented and tamped into position the femoral component was subsequently placed and cemented in the position the patellar component was subsequently cemented in position because hemostasis once again obtained and maintained wound having been thoroughly irrigated with debridement and debridement lavage was performed as well as a medial parapatellar incision closed with #1 Vicryl in interrupted fashion subcutaneous was closed with #2 Vicryl skin was closed with skin clips. PA-C was necessary for prepping and drapping as well as wound closure of deep fascia Sub cutaneous tissue and skin and was necessary for the case. A sterile compressive dressing was placed patient was taken to recovery in stable condition of report dictated by Carlos I attest to the content of the Intraoperative Record and any orders documented therein. Any exceptions are noted below.Due to the complex nature of the procedure, the entire surgery was performed with the operational assistance of SANDEE Jones. The assistant press operator offset, under direct supervision, was involved in the actual performance of all aspects of the surgical procedure including hemostasis, tissue retraction and incision, instrument management, patient positioning, and wound closure. I attest to the content of the Intraoperative Record and any orders documented therein. Any exceptions are noted below.
[2022-07-10] MEDS ORDERED: NALOXONE HCL 0.4 MG/1 ML VIAL/CARP IV PRN (16:47)
[2022-07-10] MEDS ORDERED: HYDROmorphone INJ 1 MG/ML SYRINGE IV PRN (16:47)
[2022-07-10] MEDS ORDERED: METOCLOPRAMIDE HCL INJ 5 MG/ML 2 ML VIAL IV PRN (16:47)
[2022-07-10] MEDS ORDERED: KETOROLAC 30 MG/ML VIAL IV SCH (16:47)
[2022-07-10] MEDS ORDERED: diphenhydrAMINE Capsule 25 MG CAP PO PRN (16:47)
[2022-07-10] MEDS ORDERED: MAGNESIUM HYDROXIDE SUSP 30 ML UDC PO PRN (16:47)
[2022-07-10] MEDS ORDERED: bisacodyL 10 MG SUPP PR PRN (16:47)
[2022-07-10] MEDS ORDERED: oxyCODONE HCL IR 5 MG TAB (IMMEDIATE RELEASE) PO PRN (16:47)
--- NOTE | 2022-07-10 16:48 | XRay Report ---
TWO VIEWS LEFT KNEE CLINICAL HISTORY: Postoperative examination. FINDINGS: AP and crosstable lateral portable views of the left knee are obtained. A left knee arthrop lasty is in near anatomic alignment. There has been undersurface remodeling of the patella. No acute fracture is seen. There are expected postoperative changes around the knee including a surgical drai n, soft tissue edema, and subcutaneous gas. IMPRESSION: Expected postoperative changes status post left knee arthroplasty. No acute fracture is s een. ACT 112: Negative or not required by law. Electronically signed by: Jaden Duarte M.D. 07/10/2022 4:47 PM
--- NOTE | 2022-07-10 16:51 | Anesthesiology Progress Note ---
Date of Service July 10, 2022 Anesthesia Post Procedure Vital Signs Vital Signs: Temp Pulse Pulse Resp BP BP Pulse Ox 07/10/22 16:29 36.3 C L 56 L 16 121/70 96 07/10/22 16:15 56 L 18 127/68 95 07/10/22 16:05 57 L 16 125/69 96 07/10/22 15:55 56 L 16 113/71 96 07/10/22 15:45 65 21 126/63 92 07/10/22 15:35 58 L 14 114/58 L 97 07/10/22 15:33 36.2 C L 65 16 120/62 97 07/10/22 11:15 36.6 C 45 L 20 150/74 H 98 O2 Del Method O2 Flow Rate 07/10/22 16:29 Room Air 07/10/22 16:15 Room Air 07/10/22 16:05 Room Air 07/10/22 15:55 Room Air 07/10/22 15:45 Room Air 07/10/22 15:35 Oxymask 5 07/10/22 15:33 Oxymask 5 07/10/22 11:15 Room Air Transfer of Care Handoff Completed per policy Notes Mental Status: alert / awake / arousable and participated in evaluation Patient Amnestic to Procedure: Yes Nausea / Vomiting: adequately controlled Pain: adequately controlled Airway Patency, RR, SpO2: stable & adequate BP & HR: stable & adequate Hydration State: stable & adequate Anesthetic Complications: no major complications apparent and Pt Satisfied with anesthetic care
[2022-07-10] MEDS: SODIUM CHLORIDE 0.9% 1000ML 1,000 ML IV SCH (17:06)
[2022-07-10] MEDS: KETOROLAC 30 MG/ML VIAL IV SCH (17:29)
[2022-07-10] MEDS: ACETAMINOPHEN 500 MG TAB PO SCH (17:29)
--- NOTE | 2022-07-10 18:19 | Hospitalist Consultation ---
Date of Consultation July 10, 2022 Assessment & Plan (1) Arthritis of knee, left: Status post TKA on 07/10/2022 Perioperative antibiotics and analgesia per primary service PT and OT when appropriate (2) Sinus bradycardia: Appreciated on arrival (ventricular rate 45) is well as on preoperative ECG. Rates between 50-60 while here with appropriate BPs. On history, he does not reveal any worrisome symptoms to suggest presyncope or symptomatic bradycardia. Per his report, heart rate does go up with ambulation, suggesting an appropriate chronotropic response We will check TSH in the morning with his AM labs If continuing as outpatient or symptoms develop, should consider ambulatory ECG (3) Hypertension: Reasonable to continue amlodipine and losartan at this point; no documented of hypotension (4) Hyperlipidemia: Continue atorvastatin Continue aspirin (5) Prediabetes: A1c 5.9% on arrival; no previous values for comparison Believe it is reasonable to hold from ACHS checks and SSI/basal coverage at this point Outpatient counseling (6) Chewing tobacco use: Counseling provided; in the active stage of change, currently has quit Plan Code: Full code Prophylaxis: Aspirin b.i.d. x 1 mo Disposition: MedSurg Diet: Regular Supervising Physician Co-Signing Physician Notes Patient seen and examined, chart reviewed, case discussed with Omar Posey MD and I agree with the assessment and plan as above except as otherwise noted Labs and images reviewed 59-year-old male with a past medical he of prediabetes, hypertension, hyperlipidemia who presented for [place] replacement. We have been consulted for postoperative medication management. Patient is doing well postoperatively, and had no intraoperative complications. Patient with sinus bradycardia in the 50s with appropriate chronotropic response to the 60s with ambulation, no suspicion for heart block. No syncopal symptoms or chest pain. Pressure is well controlled. Breathing is unlabored, heart rate is intermittently bradycardic to regular as noted with a regular rhythm. Agree with resuming atorvastatin, amlodipine. May resume losartan postop day 1, 4 days 0 if hypertension develops and renal function is normal. Hemodynamically stable, no acute concerns. DVT prophylaxis per primary team, aspirin twice daily is reasonable. Agree with management and assessment above. History of Present Illness Attending Physician: Tenzin Gonzalez DO History of Present Illness This 61-year-old male with a history of hypertension and hyperlipidemia who presented to [facility] for total knee replacement. Hospitalist service has been consulted for aid with medical management. Notes from the primary service were reviewed, conservative management unfortunately was not successful in dealing with left knee osteoarthritis. Underwent left TKA on 07/10. No intraoperative complications noted. EBL reported at 5 cc. Patient describes himself as very active. He goes out hunting a lot and into the [place]. He denies any presyncopal symptoms. Denies any sensation of palpitations. He asks me about his bradycardia; has not been told about this before. Medications reviewed and include amlodipine, aspirin, atorvastatin, losartan, vitamin D3. He reports using chewing tobacco on a regular basis. He has quit since Saturday and has no intention to continue at this time. He denies any feelings of withdrawal or cravings at this time. With regards to his alcohol use, he does say that he will occasionally drink 2-3 beers at night. However, he will intermittently take several days off. He denies any history of withdrawal or issues with alcohol in the past. Vitals throughout his stay were reviewed, revealing normotension, slight bradycardia in the 50s, normal respiratory rate, normal oxygenation. Preadmission labs revealed a normal CBC, coagulation studies, CBC, urinalysis. COVID-negative. A1c 5.9%. Preoperative ECG revealed sinus bradycardia with sinus arrhythmia. Allergies Allergy/AdvReac Type Severity Reaction Status Date / Time No Known Allergies Allergy Verified 05/17/22 13:44 Home Medications Medication Instructions Recorded Confirmed Type amlodipine 5 mg tablet 5 mg PO QAM 05/17/22 07/10/22 History atorvastatin 10 mg tablet 10 mg PO QAM 05/17/22 07/10/22 History cholecalciferol (vitamin D3) 25 25 mcg PO QAM 05/17/22 07/10/22 History mcg (1,000 unit) tablet (Vitamin D3) losartan 100 mg tablet 100 mg PO QAM 05/17/22 07/10/22 History vgrzhgxm-oribfplg-zxp C 250 2 tab PO QAM 05/17/22 07/10/22 History mg-herbal no.124 11.66 mg chewable tablet (Airborne Gummy) acetaminophen 500 mg tablet 1,000 mg PO Q8 14 days #84 tabs 07/11/22 Rx (Tylenol Extra Strength) aspirin 81 mg tablet,delayed 81 mg PO BID 30 days #60 tabs 07/11/22 Rx release cefadroxil 500 mg capsule 500 mg PO BID #28 caps 07/11/22 Rx oxycodone 5 mg tablet 5 mg PO Q4H PRN pain #30 tabs 07/11/22 Rx polyethylene glycol 3350 17 gram 17 g PO DAILY PRN constipation #5 07/11/22 Rx oral powder packet (Miralax) ea Patient History Medical History (Updated 07/10/22 @ 18:41 by Omar Posey MD) Fusion of spine lumbar Hyperlipidemia Hypertension controlled, stable per pt Surgical History History of carpal tunnel release bilat History of colonoscopy History of lumbar spinal fusion x 4 History of repair of rotator cuff bilat History of tonsillectomy History of tooth extraction History of total knee replacement right 07/09/17: L3-L4 + PNB. [place] teeth extracted Family History Father Colon cancer Social History Smoking Status: Never smoker Second Hand Exposure: No; Do You Dip or Chew Tobacco: Yes (advised npo status); Tobacco Cessation Education Requested by Patient: No Hx Alcohol Use: Yes Alcohol type: beer Hx Substance Use: No Preferred Language: Hungarian Communication Ability: Effective Management Assistant Required: No Beliefs That Will Affect Care: None Current Living Situation: Spouse Other Information That Helps Us Care for You: No Feels Safe at Home: Yes Safety Concerns: Feels Safe At This Time Assistive Devices: Cane and Walker Review of Systems Review of Systems: as per HPI Physical Exam Physical Exam: General: 61-year old male who is alert, oriented, and appears in no acute distress. HEENT: NCAT. - Eyes - Sclera are white, anicteric, and without injection. - Mouth - MMM - Neck - supple, no appreciable JVD Cardiac: Normal-low rate and regular rhythm; S1 and S2 present with no murmurs, rubs, or gallops. Pulmonary: Good respiratory effort with symmetric expansion of the chest. No use of accessory muscles. Lungs were clear to auscultation bilaterally with no crackles or wheezes. Abdominal: Normoactive bowel sounds. Abdomen was soft, nondistended, and non- tender to palpation. Extremities: Upper and lower extremities are warm and well perfused. LLE dressing is c/d/i with overlying SCDs. Sensation in-tact. Unable to move toes at request. Psych: Well-developed, well-nourished, appropriately dressed for occasion. Behavior is cooperative and appropriate. Affect is WNL. Insight is appropriate. Results & Data Results & Data ([facility]) Vital Signs (Past 12 Hours) Vital Signs Temp Pulse Pulse Pulse Resp BP BP 07/10/22 17:47 36.6 C 59 L 16 124/74 07/10/22 17:20 36.3 C L 53 L 16 137/80 07/10/22 16:45 36.3 C L 53 L 16 129/74 07/10/22 16:29 36.3 C L 56 L 16 121/70 07/10/22 16:15 56 L 18 127/68 07/10/22 16:05 57 L 16 125/69 07/10/22 15:55 56 L 16 113/71 07/10/22 15:45 65 21 126/63 07/10/22 15:35 58 L 14 114/58 L 07/10/22 15:33 36.2 C L 65 16 120/62 07/10/22 11:15 36.6 C 45 L 20 150/74 H Pulse Ox O2 Del Method O2 Flow Rate 07/10/22 17:47 96 Room Air 07/10/22 17:20 96 Room Air 07/10/22 16:45 98 Room Air 07/10/22 16:29 96 Room Air 07/10/22 16:15 95 Room Air 07/10/22 16:05 96 Room Air 07/10/22 15:55 96 Room Air 07/10/22 15:45 92 Room Air 07/10/22 15:35 97 Oxymask 5 07/10/22 15:33 97 Oxymask 5 07/10/22 11:15 98 Room Air Resident Activity Tracking Resident Involvement: Resident Care Provided Care Provided: Adult Hospital Medicine
[2022-07-10] MEDS: ceFAZolin 2000MG 2,000 MG/15 ML SYR IV SCH (19:40)
[2022-07-10] MEDS: DOCUSATE SODIUM 100 MG CAP PO SCH (20:49)
[2022-07-10] MEDS: ASPIRIN 81 MG ECTAB PO SCH (20:49)
[2022-07-10] MEDS ORDERED: SENNA 8.6 MG TAB PO SCH (21:00)
[2022-07-10] MEDS ORDERED: CeleBREX 200 MG CAP PO SCH (21:00)
[2022-07-11] MEDS: ACETAMINOPHEN 500 MG TAB PO SCH ×2 (00:07→06:00)
[2022-07-11] MEDS: KETOROLAC 30 MG/ML VIAL IV SCH ×3 (00:08→12:21)
[2022-07-11] MEDS: ceFAZolin 2000MG 2,000 MG/15 ML SYR IV SCH (03:32)
[2022-07-11] MEDS: SODIUM CHLORIDE 0.9% 1000ML 1,000 ML IV SCH (04:04)
[2022-07-11 06:46] LABS: BUN Creatinine Ratio 18.6 (10-20); Calcium 8.2 mg/dl (8.5-10.1); Creatinine Clr Calc Pharmacy 96.1 ml/min; Est GFR (African American) 90.9 ml/min; Est GFR (Non-African American) 78.4 ml/min; Potassium 4.2 mmol/L (3.5-5.1)
[2022-07-11 08:00] LABS: Hematocrit (blood only) 38.4 % (40.1-51.0); Hemoglobin 13.2 g/dl (14.0-18.0); Mean Corpuscular Hemoglobin 31.5 pg (25.0-34.0); Mean Corpuscular Hgb Conc 34.4 g/dL (32.0-36.0); Mean Corpuscular Volume 91.6 fL (80.0-100.0); Mean Platelet Volume 10.7 fL (9.4-12.4); Platelet Count 198 K/uL (130-400); RDW Coefficient of Variation 12.3 % (11.5-14.5); RDW Standard Deviation 41.1 fL (36.4-46.3); Red Blood Count 4.19 M/uL (4.63-6.08); White Blood Count 17.47 K/ul (4.8-10.8)
[2022-07-11] MEDS: DOCUSATE SODIUM 100 MG CAP PO SCH (08:49)
[2022-07-11] MEDS: ASPIRIN 81 MG ECTAB PO SCH (08:49)
[2022-07-11] MEDS ORDERED: amLODIPine BESYLATE 5 MG TAB PO SCH (09:00)
[2022-07-11] MEDS ORDERED: ATORVASTATIN 10 MG TAB PO SCH (09:00)
[2022-07-11] MEDS ORDERED: CHOLECALCIFEROL 1,000 UNITS 25 MCG TAB PO SCH (09:00)
[2022-07-11] MEDS ORDERED: MULTIVITAMIN TAB PO SCH (09:00)
[2022-07-11] MEDS ORDERED: LOSARTAN POTASSIUM 50 MG TAB PO SCH (09:00)
--- NOTE | 2022-07-11 09:37 | Hospitalist Progress Note ---
Date of Service July 11, 2022 Assessment & Plan (1) Arthritis of knee, left: Plan: POD# 1 s/p Left Total Knee Arthroplasty(Left) utilizing [employer] 2 patient matched total knee arthroplasty size femur 6 tibia 6 patella 35 oval poly-11 mm- Tenzin Gonzalez, DO EBL 5cc WBC elevation likely stress/steroids from surgery, afebrile H/h 13.2/38.4 -- acute blood loss anemia from surgery/dilutional from IVF hemovac output 455cc + 100cc this morning (currently about 50cc ) Pain management/bowel regimen/PT/OT per primary service DVT prophylaxis per primary service -- ASA 81mg BID Plans for d/c later today pending hemovac output -- messaged ortho/case management. can have HH arrange to be pulled tomorrow if ok w/ primary service *CAUTIOUS USE NSAIDS --ordered toradol 30mg Q6H IV, celebrex PO (placed on hold) consider PPI at d/c if continued use NSAIDs Hospitalist service will sign off at this time. Please call with any questions/concerns. (2) Sinus bradycardia: Plan: Appreciated on arrival (ventricular rate 45) is well as on preoperative ECG. Rates between 50-60 while here with appropriate BPs. On history, he does not reveal any worrisome symptoms to suggest presyncope or symptomatic bradycardia. Active, yessica, no concerning symptoms Per his report, heart rate does go up with ambulation, suggesting an appropriate chronotropic response TSH wnl HR 60s on exam If continuing as outpatient or symptoms develop, should consider ambulatory ECG (3) Hypertension: Plan: BP stable Remains on amlodipine 5mg, losartan 100mg (4) Hyperlipidemia: Plan: Continue atorvastatin Continue aspirin, BID for DVT proph (5) Prediabetes: Plan: A1c 5.9% on arrival; no previous values for comparison Glucose on AM labs 144, no prior insulin ordered, no further steroids to be given F/u outpatient, counseling (6) Chewing tobacco use: Plan: Counseling provided; in the active stage of change, currently has quit Plan planning for d/c later today per patient pending drain output. messaged orthopedics about HH to have pulled tomorrow if they are ok with this Thank you for allowing hospitalist to participate in the care of Mr Tierney. Hospitalist service to sign off at this time. Please call with any questions/concerns. Admission and Anticipated Discharge Date Admission Date: July 10, 2022 Supervising Physician Co-Signing Physician Notes PA Supervision Note: I did not personally see or examine the patient today, but I verified all gibbons points of SANDEE Rees's assessment and plan with the following exceptions/additions: None Subjective eval this morning around 1120am, doing well, just got done doing a lap in the halls pain w/ excellent control, no fever/chills, chest pain, shortness of breath anxious for discharge as on her way from 2 hours away and not sure if going home or not but if not would like to let her know susan. Has home therapy arranged (daughter doctor of PT and coming to house) however discussed could have CM set up home health to have hemovac pulled tomorrow if continues with output through this afternoon as patient ideally wanting to go home today. Questions/concerns addressed at this time. Review of Systems Review of Systems: All systems reviewed & are unremarkable except as noted in HPI & below Physical Exam Physical Exam: General: WD/WN male sitting up in chair, NAD HEENT: head normocephalic, atraumatic, mmm, trachea midline Resp: CTAB, no w/c/r, on room air CV: RRR, no m/r/g, no pitting edema/calf tenderness GI: +BS, soft/NT : no cedillo MSK/Neuro: moves all extremities, dressing/ml wrap to LLE, expected edema/no calf tenderness, hemovac with approximately 50cc bloody drainage, pulses palpable, dorsiflexion/plantar flexion intact, NVI Psych: AOx3, pleasant and cooperative Skin: warm, well perfused Results & Data Results & Data ([facility]) Vital Signs (Past 12 Hours) Vital Signs Temp Pulse Pulse Resp BP Pulse Ox O2 Del Method 07/11/22 07:37 37 C 62 16 159/66 H 95 Room Air 07/11/22 03:31 36.7 C 54 L 16 114/67 95 Room Air 07/10/22 23:17 36.8 C 68 16 151/71 H 96 Room Air Laboratory Results 07/11/22 07/11/22 07/11/22 Range/Units 05:30 05:30 05:30 WBC 17.47 H (4.8-10.8) K/ul RBC 4.19 L (4.63-6.08) M/uL Hgb 13.2 L (14.0-18.0) g/dl Hct 38.4 L (40.1-51.0) % MCV 91.6 (80.0-100.0) fL MCH 31.5 (25.0-34.0) pg MCHC 34.4 (32.0-36.0) g/dL RDW Std Deviation 41.1 (36.4-46.3) fL RDW Coeff of Pema 12.3 (11.5-14.5) % Plt Count 198 (130-400) K/uL MPV 10.7 (9.4-12.4) fL Sodium 136 (136-145) mmol/L Potassium 4.2 (3.5-5.1) mmol/L Chloride 108 H (98-107) mmol/L Carbon Dioxide 20 L (21-32) mmol/L Anion Gap 8 (3-11) BUN 19 (6-23) mg/dl Creatinine 1.02 (0.6-1.4) mg/dl Est Cr Clr Drug Dosing 96.1 ml/min Est GFR ( Amer) 90.9 ml/min Est GFR (Non-Af Amer) 78.4 ml/min BUN/Creatinine Ratio 18.6 (10-20) Glucose 144 H (70-99(Fasting)) mg/dl Calcium 8.2 L (8.5-10.1) mg/dl TSH 0.586 (0.300-4.500) uIu/ml SARS-CoV-2, RNA, NAAT (NEGATIVE) 07/10/22 Range/Units 11:05 WBC (4.8-10.8) K/ul RBC (4.63-6.08) M/uL Hgb (14.0-18.0) g/dl Hct (40.1-51.0) % MCV (80.0-100.0) fL MCH (25.0-34.0) pg MCHC (32.0-36.0) g/dL RDW Std Deviation (36.4-46.3) fL RDW Coeff of Pema (11.5-14.5) % Plt Count (130-400) K/uL MPV (9.4-12.4) fL Sodium (136-145) mmol/L Potassium (3.5-5.1) mmol/L Chloride (98-107) mmol/L Carbon Dioxide (21-32) mmol/L Anion Gap (3-11) BUN (6-23) mg/dl Creatinine (0.6-1.4) mg/dl Est Cr Clr Drug Dosing ml/min Est GFR ( Amer) ml/min Est GFR (Non-Af Amer) ml/min BUN/Creatinine Ratio (10-20) Glucose (70-99(Fasting)) mg/dl Calcium (8.5-10.1) mg/dl TSH (0.300-4.500) uIu/ml SARS-CoV-2, RNA, NAAT NEGATIVE (NEGATIVE) Diagnostic Findings Knee X-Ray 07/10/22 13:46 TWO VIEWS LEFT KNEE CLINICAL HISTORY: Postoperative examination. FINDINGS: AP and crosstable lateral portable views of the left knee are obtained. A left knee arthroplasty is in near anatomic alignment. There has been undersurface remodeling of the patella. No acute fracture is seen. There are expected postoperative changes around the knee including a surgical drain, soft tissue edema, and subcutaneous gas. IMPRESSION: Expected postoperative changes status post left knee arthroplasty. No acute fracture is seen. ACT 112: Negative or not required by law. Electronically signed by: Jaden Duarte M.D. 07/10/2022 4:47 PM PG Care Time/CCT Total # of Minutes Spent Total Time Spent with Patient: Total time spent is greater than 50% in coordination of care (as documented) at patient's floor/unit and/or counseling patient: Coding Level of Care Code 80183 Subseq Hosp Care Lvl 2 Diagnoses Arthritis of knee, left M17.12 Sinus bradycardia R00.1 Hypertension I10 Hyperlipidemia E78.5 Prediabetes R73.03 Chewing tobacco use Z72.0
--- NOTE | 2022-07-11 12:23 | Orthopedic Progress Note ---
Date of Service July 11, 2022 Assessment & Plan (1) Arthritis of knee, left: Plan: POD 1 s/p Left TKA PT/OT. WBAT. DVT prophylaxis - ASA po bid, SCD's, RUPESH's Pain management - as written. Leukocytosis - likely due to preop steroids, and or surgical stress. Pt a symptomatic, Afeb. DC planning - Home PT. Plan for dc home today. Admission and Anticipated Discharge Date Admission Date: July 10, 2022 Subjective POD 1 Pt sitting in chair at bedside. No complaints. Comfortable. Pain controlled. States PT went well. Worked on stairs etc. States he has his daughter, who is a physical therapist, is coming in to do his PT for him at home. Physical Exam Physical Exam: Dressings intact. Mild bloody drainage noted near area where hemovac drain is. Calves are soft, NT. NV intact. Toes mobile. Good DF/PF of left foot. HV drainage was 150ml from the previous shift. Results & Data ([facility]) Vital Signs (Past 12 Hours) Vital Signs Temp Pulse Pulse Resp BP Pulse Ox O2 Del Method 07/11/22 10:59 36.7 C 68 16 127/73 96 Room Air 07/11/22 07:37 37 C 62 16 159/66 H 95 Room Air 07/11/22 03:31 36.7 C 54 L 16 114/67 95 Room Air Diagnostic Findings Laboratory Results WBC 17.47 K/ul (4.8-10.8) H 07/11/22 05:30 RBC 4.19 M/uL (4.63-6.08) L 07/11/22 05:30 Hgb 13.2 g/dl (14.0-18.0) L 07/11/22 05:30 Hct 38.4 % (40.1-51.0) L 07/11/22 05:30 MCV 91.6 fL (80.0-100.0) 07/11/22 05:30 MCH 31.5 pg (25.0-34.0) 07/11/22 05:30 MCHC 34.4 g/dL (32.0-36.0) 07/11/22 05:30 RDW Std Deviation 41.1 fL (36.4-46.3) 07/11/22 05:30 RDW Coeff of Pema 12.3 % (11.5-14.5) 07/11/22 05:30 Plt Count 198 K/uL (130-400) 07/11/22 05:30 MPV 10.7 fL (9.4-12.4) 07/11/22 05:30 Sodium 136 mmol/L (136-145) 07/11/22 05:30 Potassium 4.2 mmol/L (3.5-5.1) 07/11/22 05:30 Chloride 108 mmol/L (98-107) H 07/11/22 05:30 Carbon Dioxide 20 mmol/L (21-32) L 07/11/22 05:30 Anion Gap 8 (3-11) 07/11/22 05:30 BUN 19 mg/dl (6-23) 07/11/22 05:30 Creatinine 1.02 mg/dl (0.6-1.4) 07/11/22 05:30 Est Cr Clr Drug Dosing 96.1 ml/min 07/11/22 05:30 Est GFR ( Amer) 90.9 ml/min 07/11/22 05:30 Est GFR (Non-Af Amer) 78.4 ml/min 07/11/22 05:30 BUN/Creatinine Ratio 18.6 (10-20) 07/11/22 05:30 Glucose 144 mg/dl (70-99(Fasting)) H 07/11/22 05:30 Calcium 8.2 mg/dl (8.5-10.1) L 07/11/22 05:30 TSH 0.586 uIu/ml (0.300-4.500) 07/11/22 05:30 SARS-CoV-2, RNA, NAAT NEGATIVE (NEGATIVE) 07/10/22 11:05 Impressions Knee X-Ray 07/10/22 13:46 TWO VIEWS LEFT KNEE CLINICAL HISTORY: Postoperative examination. FINDINGS: AP and crosstable lateral portable views of the left knee are obtained. A left knee arthroplasty is in near anatomic alignment. There has been undersurface remodeling of the patella. No acute fracture is seen. There are expected postoperative changes around the knee including a surgical drain, soft tissue edema, and subcutaneous gas. IMPRESSION: Expected postoperative changes status post left knee arthroplasty. No acute fracture is seen. ACT 112: Negative or not required by law. Electronically signed by: Jaden Duarte M.D. 07/10/2022 4:47 PM
--- NOTE | 2022-07-11 14:17 | Discharge Summary ---
Date of Service date of discharge: July 11, 2022 date of admission: 07-10-22 Admission HPI Per Admitting Provider Ambrose is a 61 year old male who complains of left knee pain, presents for pre- op evaluation prior to a left total knee replacement by Dr Gonzalez at [facility]. He complains of pain, decreased range of motion, instability and stiffness in his left knee. Currently the patient states that the symptoms are moderate-severe and is described as aching, sharp and throbbing. His symptoms are aggravated by ascending stairs, daily activities, first steps while awake walking. Prior NSAIDs include IBU and Aleve. He has been treated with previous cortisone and visco injections in the past without much relief. Principal Diagnosis left knee arthritis Discharge Exam Musculoskeletal left knee: NVDI, calf SNT, negative amber sign. DP palpable, able to wiggle toes/ankle movement without difficulty. ZENA dressing clean dry and intact. expected post-operative bruising noted. Discharge Data Allergies Allergy/AdvReac Type Severity Reaction Status Date / Time No Known Allergies Allergy Verified 05/17/22 13:44 Consultations 07/05/22 16:05 Consult Hospitalist Routine Procedures Performed Operation Date: 07/10/22 12:25 Actual Procedures p Left Total Knee Arthroplasty(Left) - Tenzin Gonzalez DO Ordered Studies 07/10/22 05:00 US - OR guided needle placemen Routine Hospital Course (1) Arthritis of knee, left: POD 1 s/p Left TKA PT/OT. WBAT. DVT prophylaxis - ASA po bid, SCD's, RUPESH's Pain management - as written. Leukocytosis - likely due to preop steroids, and or surgical stress. Pt asymp tomatic, Afeb. DC planning - Home PT. Plan for dc home today. Total Time Total Time Spent Total Time Spent (In Minutes): 20 Discharge Plan Discharge Items Patient Disposition: Home - Home Health Services Reason For Visit: Primary Osteoarthritis Knee Left Discharge Diagnosis: LEFT TOTAL KNEE REPLACEMENT Activity: Per Instructions section Weightbearing: Left weightbearing Weightbearing Comment: WBAT WITH WALKER Non-emergency contact: Surgeon Call non-emergency contact if: you have any medication questions, your temperature is above 101, your wound has increased redness, your wound has increased drainage and your wound pain has increased Follow-up/Referrals: Tenzin Gonzalez DO [Surgeon] - (Follow up with Dr Gonzalez or his PA in 2 weeks from the day of your surgery for your first post operative visit. ) Frank Wilkinson, [Primary Care Provider] - Diet: Regular Addtl Attending Provider Instructions: ACTIVITY RECOMMENDATIONS: SELF CARE INSTRUCTIONS AFTER TOTAL KNEE REPLACEMENT A. You may need to continue a physical therapy program after discharge from the hospital. There are several options available to you. Your doctor will assist you in selecting the best one for you. 1. An out-patient facility 2 to 3 times a week for therapy or home therapy. 2. Continue working on all exercises taught to you in the hospital. Your goals should be to increase bending of your knee to 90 degrees and beyond and to fully straighten your knee. B. You may progress at your own pace from walking with a walker or crutches to a cane; then to no assistive devices. C. Make walking a part of your daily routine. Be up as much as comfortable with rest periods throughout the day. Rest with leg elevation is very important. Use the ice wrap frequently for the first 3-4 weeks. D. There are no restrictions on activities. You may ride in a car, shop, participate in water rights specialist and all social activities. E. Wear the long elastic stockings (RUPESH hose) 20 hours a day for 2 weeks after surgery. They can be removed several times a day for laundering and for a bath. F. You may shower, no tub baths until cleared by your doctor. SPECIAL CARE INSTRUCTIONS: VERY IMPORTANT TO READ AND REVIEW A. There are a few signs you need to watch for after you are home. Call [facility] if you notice any of the followin. Increased severe knee pain. Some pain is expected especially when you exercise. 2. Increased swelling in your leg or knee; pain or swelling of the calf muscle in either lower leg. 3. Any fluid drainage from the incision. 4. Shortness of breath or chest pain. B. Please call [facility] at if you have any concerns or questions about your operation or recovery. The doctor or his nurse will return your call promptly. C. You must take antibiotics before dental work, bladder, bowel or other surgery. Your doctor will provide you with a permanent care to carry describing this precaution. IMPORTANT: * REMEMBER TO TAKE ASPIRIN, 81 MG, TWICE DAILY FOR 4 WEEKS UNLESS OTHERWISE DIRECTED. THIS IS YOUR BLOOD THINNER. * HIGH RISK PATIENTS MAY BE PRESCRIBED A STRONGER BLOOD THINNER. THIS WILL BE PROVIDED AT DISCHARGE. * CALL IF INCREASED PAIN, REDNESS, DRAINAGE OR FEVER GREATER THAT 101. * WEAR RUPESH HOSE 20 HOURS PER DAY FOR 2 WEEKS. DRESSING INSTRUCTIONS * ZENA Dressing- This is a large suction dressing covering your incision. This will help pull any excess drainage from the wound and allow your incision to heal properly. You may shower with this if you can keep the unit outside of the shower. If any bleeding or leakage is noted please call your doctor's office. This will remain on your incision for 7 days and then should be removed. This can be done yourself or by the home nursing staff if applicable. The entire unit is disposable once removed. Once removed, keep incision clean and dry. If redness or drainage is noted, please call your surgeon. ONCE ZENA IS REMOVED, FOLLOW THESE INSTRUCTIONS: DERMABOND Prineo- This is a mesh tape dressing that is covered with glue. It should remain in place until the incision is properly healed, usually 10-14 days. This dressing is designed to naturally slough off. You may trim the excess mesh tape as it peels off. Incision may be briefly wet in a shower. Dry immediately by blotting with a clean, dry towel. Do not bath or swim until instructed by your doctor. Do not scratch, rub, or pick at the dressing. Do not apply any topical ointments or lotions until dressing is completely removed and/or instructed by your doctor. There may be a small piece of suture material at one end of your incision. Do not pull or trim this. If it is bothersome or catching on clothing, you may cover it with a band-aid. IF INCISION IS LEAKING THROUGH DRESSING, CALL THE OFFICE . Stand-Alone Forms: My [facility] Medications and DC Order Prescriptions: New aspirin 81 mg Tablet,Delayed Release (Dr/Ec) 81 mg PO BID 30 Days Qty: 60 0RF acetaminophen [Tylenol Extra Strength] 500 mg Tablet 1,000 mg PO Q8 14 Days Qty: 84 0RF cefadroxil 500 mg capsule 500 mg PO BID Qty: 28 1RF polyethylene glycol 3350 [Miralax] 17 gram powder in packet 17 g PO DAILY PRN (Reason: constipation) Qty: 5 0RF oxycodone 5 mg tablet 5 mg PO Q4H MDD 6 PRN (Reason: pain) Qty: 30 0RF Continued atorvastatin 10 mg Tablet 10 mg PO QAM amlodipine 5 mg Tablet 5 mg PO QAM losartan 100 mg Tablet 100 mg PO QAM cholecalciferol (vitamin D3) [Vitamin D3] 25 mcg (1,000 unit) Tablet 25 mcg PO QAM Airborne Gummy 250-11.66 mg Tablet,Chewable 2 tab PO QAM Discontinued aspirin [Aspir-81] 81 mg Tablet,Delayed Release (Dr/Ec) 81 mg PO QAM Discharge Orders: Discharge Order (Routine); Ordered 07/11/22 Ordered By: Migel Dias Admission Data Admit Date/Time: 07/10/22 13:46 Attending Provider: Tenzin Gonzalez Admit Provider: Tenzin Gonzalez Primary Care Provider: Frank Wilkinson Other Providers: Saw Crowley Natalie B. Other Interventions: Discharge Summary Assessment (RN) Last Done: 07/11/22 12:41
[2022-07-11] MEDS ORDERED: CeleBREX 200 MG CAP PO SCH (21:00)
== END 2022-07-11 13:05 | disposition home health service (06) ==
LOC: 3W 10:52 → ASU 10:52